=== PATIENT | female | born 1955 | race African-American/Black ===

== ENCOUNTER 2017-06-26 12:56 | Emergency (ER) | payer MEDICAID ==
[~2017-06-26] VITALS: Ht 177.8 cm; Wt 93.9 kg
[2017-06-26 12:58] VITALS: BP 178/87
[2017-06-26] MEDS ORDERED: FAMOTIDINE 20 MG TABLET PO ONE (14:00)
[2017-06-26] MEDS ORDERED: PLEASE ENTER ALLERGIES MC SCH (14:03)
[2017-06-26] MEDS ORDERED: FAMOTIDINE 20 MG TABLET ONE (14:16)
== END 2017-06-26 14:49 | disposition home or self-care (01) ==
LOC: ED 14:43
DX: L27.0 Generalized skin eruption due to drugs and medicaments taken internally (principal); T36.8X5A Adverse effect of other systemic antibiotics, initial encounter; Y92.89 Other specified places as the place of occurrence of the external cause; F17.200 Nicotine dependence, unspecified, uncomplicated
CPT/HCPCS: 99284; J7512; Q0177

== ENCOUNTER 2017-07-11 06:35 | Emergency (ER) | payer MEDICAID ==
[~2017-07-11] VITALS: Ht 180.3 cm; Wt 101.0 kg
[2017-07-11 07:13] VITALS: BP 170/78
[2017-07-11] MEDS ORDERED: vitamin E PO (07:14)
[2017-07-11] MEDS ORDERED: vitamin D PO (07:14)
[2017-07-11] MEDS ORDERED: blood pressure med PO (07:14)
[2017-07-11] MEDS ORDERED: aspirin PO (07:14)
[2017-07-11] MEDS ORDERED: hydrOXyzine 50MG TABLET ONE (07:19)
== END 2017-07-11 08:25 | disposition home or self-care (01) ==
LOC: ED 08:19
DX: B86 Scabies (principal)
CPT/HCPCS: 99283; Q0177

== ENCOUNTER 2017-07-19 09:59 | Inpatient (IN) | payer MEDICAID ==
[~2017-07-19] VITALS: Ht 177.8 cm; Wt 80.0 kg
[~2017-07-19 09:59] MED LIST: aspirin PO; blood pressure med PO; vitamin D PO; vitamin E PO
[2017-07-19] MEDS ORDERED: SODI650T PO (10:51)
[2017-07-19] MEDS ORDERED: AMLO5TAB2 PO (10:51)
[2017-07-19] MEDS ORDERED: HYDR-3343 PO (10:51)
[2017-07-19] MEDS ORDERED: CARV3.1212 PO (10:51)
[2017-07-19] MEDS ORDERED: TORS10TA4 PO (10:51)
[2017-07-19] MEDS ORDERED: ATOR40TA78 PO (10:51)
[2017-07-19] MEDS ORDERED: FERR-46 PO (10:51)
[2017-07-19] MEDS ORDERED: LISI5TAB7 PO (10:51)
[2017-07-19 11:13] LABS: BASOPHILS # (AUTO) 0.01 x10^3/uL (0-0.1); BASOPHILS % (AUTO) 0 % (0-1); EOSINOPHILS # (AUTO) 0.77 x10^3/uL (0-0.4); EOSINOPHILS % (AUTO) 14 % (1-7); LYMPHOCYTES # (AUTO) 0.58 x10^3/uL (1-3.4); LYMPHOCYTES % (AUTO) 11 % (22-44); MD NO; MEAN PLATELET VOLUME 8.5 fL (7.4-10.4); MONOCYTES # (AUTO) 0.53 x10^3/uL (0.2-0.8); MONOCYTES % (AUTO) 10 % (2-9); NEUTROPHILS # (AUTO) 3.49 x10^3/uL (1.8-6.8); NEUTROPHILS % (AUTO) 65 % (42-75); PLATELET COUNT 165 x10^3/uL (130-400)
[2017-07-19 11:21] LABS: ALANINE AMINOTRANSFERASE 55 U/L (12-78); ALBUMIN 2.7 g/dL (3.4-5.0); ANION GAP 9 mmol/L (5-15); CALCIUM 8.4 mg/dL (8.5-10.1); CHLORIDE 117 mmol/L (98-107)
[2017-07-19 11:24] LABS: ALKALINE PHOSPHATASE 426 U/L (45-117); BILIRUBIN,TOTAL 0.9 mg/dL (0.2-1.0); TOTAL PROTEIN 7.3 g/dL (6.4-8.2)
[2017-07-19 11:51] LABS: FREE T4 (FREE THYROXINE) 0.95 ng/dL (0.76-1.46); THYROID STIMULATING HORMONE 19.2 mIU/L (0.358-3.740)
[2017-07-19] MEDS ORDERED: SODIUM POLY SULFONATE UDC 15 GM/60 ML PO ONE (12:00)
[2017-07-19] MEDS ORDERED: INSULIN REGULAR 100 UNITS/ML, 3ML VIAL IVPush ONE (12:00)
[2017-07-19] MEDS ORDERED: DEXTROSE 50%, 50ML SYRINGE IVPush ONE (12:00)
[2017-07-19] MEDS ORDERED: SODIUM BICARB 8.4%, 50ML SYRINGE IVPush ONE (12:00)
[2017-07-19] MEDS ORDERED: ALBUTEROL 0.5%, 20ML NPPB ONE (12:00)
[2017-07-19 12:15] LABS: CULTURE INDICATED? YES; MICROSCOPIC INDICATED
[2017-07-19] MEDS ORDERED: SODIUM BICARB 8.4%, 50ML SYRINGE ONE (12:39)
[2017-07-19] MEDS ORDERED: DEXTROSE 50%, 50ML SYRINGE ONE (12:39)
[2017-07-19] MEDS ORDERED: INSULIN REGULAR 100 UNITS/ML, 3ML VIAL ONE (12:40)
[2017-07-19] MEDS ORDERED: SODIUM CHLORIDE 0.9% 1,000 ML IV ONE (12:41)
[2017-07-19 14:00] VITALS: BP 135/72
[2017-07-19] MEDS ORDERED: SODIUM POLYSTYRENE SULFONATE ORAL SUSP PO ONE (14:00)
[2017-07-19] MEDS ORDERED: ALLO100T30 PO (14:00)
[2017-07-19] MEDS ORDERED: POLYETHYLENE GLYCOL 17 GM PACKET PO PRN (14:00)
[2017-07-19] MEDS ORDERED: ONDANSETRON ODT 4 MG PO PRN (14:00)
[2017-07-19] MEDS ORDERED: hydrALAzine 20 MG/ML, 1ML IVPush PRN (14:00)
[2017-07-19] MEDS ORDERED: SODIUM BICARBONATE 8.4% 150 MEQ in DEXTROSE 5% 1,000 ML IV SCH (14:00)
[2017-07-19] MEDS ORDERED: LABETALOL 5MG/ML, 20ML IVPush PRN (14:00)
[2017-07-19] MEDS ORDERED: DOCUSATE 100 MG CAPSULE PO PRN (14:00)
[2017-07-19] MEDS ORDERED: BISACODYL 10 MG SUPP PR PRN (14:00)
[2017-07-19] MEDS ORDERED: FUROSEMIDE 100 MG/10 ML IV ONE (14:30)
[2017-07-19] MEDS ORDERED: SODIUM BICARBONATE 650 MG TABLET PO SCH (16:00)
[2017-07-19] MEDS: SODIUM BICARBONATE 650 MG TABLET PO SCH ×2 (16:26→21:23)
[2017-07-19 16:57] LABS: ANION GAP 11 mmol/L (5-15); CALCIUM 8.9 mg/dL (8.5-10.1); CHLORIDE 119 mmol/L (98-107); CREATININE 4.31 mg/dL (0.55-1.02)
[2017-07-19 20:08] VITALS: BP 152/83
[2017-07-19] MEDS: CARVEDILOL 3.125 MG TABLET PO SCH (21:24)
[2017-07-19] MEDS: HEPARIN 5,000 UNITS/ML, 1ML SQ SCH (21:24)
[2017-07-19] MEDS: ATORVASTATIN 40 MG TABLET PO SCH (21:24)
[2017-07-20 01:11] VITALS: BP 143/73
[2017-07-20 05:25] LABS: BASOPHILS # (AUTO) 0.01 x10^3/uL (0-0.1); BASOPHILS % (AUTO) 0 % (0-1); EOSINOPHILS # (AUTO) 0.62 x10^3/uL (0-0.4); EOSINOPHILS % (AUTO) 12 % (1-7); LYMPHOCYTES % (AUTO) 10 % (22-44); MD NO; MEAN CORPUSCULAR HEMOGLOBIN 31.5 pg (27.0-34.8); MEAN CORPUSCULAR VOLUME 95.6 fL (80-100); MEAN PLATELET VOLUME 8.4 fL (7.4-10.4); MONOCYTES # (AUTO) 0.43 x10^3/uL (0.2-0.8); MONOCYTES % (AUTO) 8 % (2-9); NEUTROPHILS # (AUTO) 3.68 x10^3/uL (1.8-6.8); NEUTROPHILS % (AUTO) 70 % (42-75); PLATELET COUNT 147 x10^3/uL (130-400); RED BLOOD COUNT 2.54 x10^6/uL (3.82-5.3); RED CELL DISTRIBUTION WIDTH 17.5 % (9.6-15.2)
[2017-07-20] MEDS: ACETAMINOPHEN 325 MG TABLET PO PRN (05:38)
[2017-07-20] MEDS: DIPHENHYDRAMINE 25 MG CAPSULE PO PRN ×2 (05:38→21:12)
[2017-07-20] MEDS: LEVOTHYROXINE 100 MCG TABLET PO SCH (05:38)
[2017-07-20 05:39] LABS: ALBUMIN 2.6 g/dL (3.4-5.0); ANION GAP 11 mmol/L (5-15); CHLORIDE 116 mmol/L (98-107)
[2017-07-20] MEDS: HEPARIN 5,000 UNITS/ML, 1ML SQ SCH ×3 (05:39→20:51)
[2017-07-20 05:47] LABS: % IRON SATURATION 11 % (20-55); ALANINE AMINOTRANSFERASE 57 U/L (12-78); ALKALINE PHOSPHATASE 389 U/L (45-117); BILIRUBIN,TOTAL 0.7 mg/dL (0.2-1.0); CREATININE 4.24 mg/dL (0.55-1.02); IRON LEVEL 29 mcg/dL (50-170); TOTAL IRON BINDING CAPACITY 271 mcg/dL (250-450)
[2017-07-20 07:10] VITALS: BP 145/79
[2017-07-20 08:20] VITALS: BP 138/71
[2017-07-20] MEDS: AMLODIPINE 5 MG TABLET PO SCH (08:32)
[2017-07-20] MEDS: CARVEDILOL 3.125 MG TABLET PO SCH ×2 (08:32→20:50)
[2017-07-20] MEDS: SODIUM BICARBONATE 650 MG TABLET PO SCH ×4 (08:32→20:50)
[2017-07-20] MEDS ORDERED: FERROUS SULFATE 325 MG TABLET PO SCH (09:00)
[2017-07-20] MEDS ORDERED: FUROSEMIDE 100 MG/10 ML IV ONE (10:30)
[2017-07-20] MEDS: SEVELAMER CARBONATE 800MG TAB PO SCH ×3 (10:40→17:45)
[2017-07-20] MEDS: IRON SUCROSE COMPLEX 100MG/5ML IV SCH (10:40)
[2017-07-20] MEDS ORDERED: FUROSEMIDE 40 MG/4 ML ONE (10:56)
[2017-07-20] MEDS: AQUAPHOR NATURAL HEALING OINT 50GM TP SCH ×2 (16:00→20:51)
[2017-07-20] MEDS: MINERA CRM, 60GM TP SCH ×2 (16:00→21:00)
[2017-07-20 17:36] VITALS: BP 121/71
[2017-07-20] MEDS: HEMORRHOIDAL OINT, 28 GM (PREP H) TP PRN ×2 (17:46→20:51)
[2017-07-20 20:04] VITALS: BP 115/63
[2017-07-20 20:49] VITALS: BP 132/70
[2017-07-20] MEDS: ATORVASTATIN 40 MG TABLET PO SCH (20:50)
[2017-07-20] MEDS: NYSTATIN TOPICAL POWDER 15GM TP SCH (21:00)
[2017-07-21 00:53] VITALS: BP 116/63
[2017-07-21] MEDS: HEPARIN 5,000 UNITS/ML, 1ML SQ SCH ×3 (04:46→20:10)
[2017-07-21] MEDS: LEVOTHYROXINE 100 MCG TABLET PO SCH (04:46)
[2017-07-21 05:49] LABS: CHLORIDE 116 mmol/L (98-107)
[2017-07-21 05:58] LABS: MEAN CORPUSCULAR HEMOGLOBIN 31.9 pg (27.0-34.8); MEAN CORPUSCULAR HGB CONC 33.4 g/dL (32.4-35.8); MEAN CORPUSCULAR VOLUME 95.6 fL (80-100); MEAN PLATELET VOLUME 8.8 fL (7.4-10.4); PLATELET COUNT 119 x10^3/uL (130-400); RED CELL DISTRIBUTION WIDTH 17.2 % (9.6-15.2)
[2017-07-21 06:20] LABS: RED BLOOD COUNT 2.62 x10^6/uL (3.82-5.3)
[2017-07-21 06:21] LABS: CREATININE 4.19 mg/dL (0.55-1.02); MEAN CORPUSCULAR HGB CONC 32.6 g/dL (32.4-35.8); MEAN CORPUSCULAR VOLUME 95.1 fL (80-100); RED CELL DISTRIBUTION WIDTH 17.2 % (9.6-15.2)
[2017-07-21 06:23] LABS: ALANINE AMINOTRANSFERASE 55 U/L (12-78); ALBUMIN 2.5 g/dL (3.4-5.0); ALKALINE PHOSPHATASE 389 U/L (45-117); ANION GAP 11 mmol/L (5-15); BILIRUBIN,TOTAL 0.6 mg/dL (0.2-1.0); CALCIUM 8.5 mg/dL (8.5-10.1); CREATININE 4.16 mg/dL (0.55-1.02)
[2017-07-21 06:35] LABS: BASOPHILS # (AUTO) 0.01 x10^3/uL (0-0.1); BASOPHILS % (AUTO) 0 % (0-1); EOSINOPHILS # (AUTO) 0.41 x10^3/uL (0-0.4); EOSINOPHILS % (AUTO) 11 % (1-7); LYMPHOCYTES # (AUTO) 0.23 x10^3/uL (1-3.4); LYMPHOCYTES % (AUTO) 6 % (22-44); MD SCAN; MONOCYTES % (AUTO) 8 % (2-9); NEUTROPHILS # (AUTO) 2.71 x10^3/uL (1.8-6.8); NEUTROPHILS % (AUTO) 74 % (42-75)
[2017-07-21 09:34] VITALS: BP 134/76
[2017-07-21] MEDS: SODIUM BICARBONATE 650 MG TABLET PO SCH ×3 (09:56→21:27)
[2017-07-21] MEDS: CARVEDILOL 3.125 MG TABLET PO SCH ×2 (09:56→21:00)
[2017-07-21] MEDS: SEVELAMER CARBONATE 800MG TAB PO SCH ×3 (09:56→17:41)
[2017-07-21] MEDS: AMLODIPINE 5 MG TABLET PO SCH (09:56)
[2017-07-21] MEDS: HEMORRHOIDAL OINT, 28 GM (PREP H) TP PRN (09:57)
[2017-07-21] MEDS: AQUAPHOR NATURAL HEALING OINT 50GM TP SCH ×3 (09:57→21:28)
[2017-07-21] MEDS: NYSTATIN TOPICAL POWDER 15GM TP SCH ×2 (09:57→21:27)
[2017-07-21] MEDS: MINERA CRM, 60GM TP SCH ×3 (09:58→20:10)
[2017-07-21] MEDS ORDERED: LIDOCAINE-MPF 1%, 2ML ONE (10:22)
[2017-07-21] MEDS: OXYcodone IR 5MG TABLET PO PRN ×2 (13:28→20:56)
[2017-07-21 15:45] VITALS: BP 120/63
[2017-07-21 21:07] VITALS: BP 115/66
[2017-07-21] MEDS: ATORVASTATIN 40 MG TABLET PO SCH (21:27)
[2017-07-22 02:13] VITALS: BP 119/68
[2017-07-22] MEDS: HEPARIN 5,000 UNITS/ML, 1ML SQ SCH ×3 (04:05→21:28)
[2017-07-22] MEDS: LEVOTHYROXINE 100 MCG TABLET PO SCH (05:33)
[2017-07-22 05:49] LABS: MEAN CORPUSCULAR HEMOGLOBIN 32.8 pg (27.0-34.8); MEAN CORPUSCULAR HGB CONC 34.4 g/dL (32.4-35.8); MEAN CORPUSCULAR VOLUME 95.4 fL (80-100); MEAN PLATELET VOLUME 8.4 fL (7.4-10.4); PLATELET COUNT 124 x10^3/uL (130-400); RED BLOOD COUNT 2.41 x10^6/uL (3.82-5.3); RED CELL DISTRIBUTION WIDTH 17.1 % (9.6-15.2)
[2017-07-22 06:01] LABS: ALBUMIN 2.2 g/dL (3.4-5.0); ANION GAP 7 mmol/L (5-15); CALCIUM 7.9 mg/dL (8.5-10.1); CHLORIDE 112 mmol/L (98-107)
[2017-07-22 06:05] LABS: ALANINE AMINOTRANSFERASE 51 U/L (12-78); ALKALINE PHOSPHATASE 341 U/L (45-117); BILIRUBIN,TOTAL 0.5 mg/dL (0.2-1.0); CREATININE 3.33 mg/dL (0.55-1.02); TOTAL PROTEIN 6.7 g/dL (6.4-8.2)
[2017-07-22 06:21] LABS: BASOPHILS # (AUTO) 0.03 x10^3/uL (0-0.1); BASOPHILS % (AUTO) 1 % (0-1); EOSINOPHILS # (AUTO) 0.32 x10^3/uL (0-0.4); EOSINOPHILS % (AUTO) 8 % (1-7); LYMPHOCYTES # (AUTO) 0.28 x10^3/uL (1-3.4); LYMPHOCYTES % (AUTO) 7 % (22-44); MD SCAN; MONOCYTES # (AUTO) 0.43 x10^3/uL (0.2-0.8); MONOCYTES % (AUTO) 11 % (2-9); NEUTROPHILS # (AUTO) 2.92 x10^3/uL (1.8-6.8); NEUTROPHILS % (AUTO) 74 % (42-75)
[2017-07-22] MEDS: MINERA CRM, 60GM TP SCH ×3 (09:00→22:30)
[2017-07-22] MEDS: SEVELAMER CARBONATE 800MG TAB PO SCH ×3 (09:22→16:38)
[2017-07-22] MEDS: IRON SUCROSE COMPLEX 100MG/5ML IV SCH (09:23)
[2017-07-22] MEDS: SODIUM BICARBONATE 650 MG TABLET PO SCH ×3 (09:23→21:28)
[2017-07-22] MEDS: AMLODIPINE 5 MG TABLET PO SCH (09:23)
[2017-07-22] MEDS: CARVEDILOL 3.125 MG TABLET PO SCH ×2 (09:23→21:28)
[2017-07-22] MEDS: NYSTATIN TOPICAL POWDER 15GM TP SCH ×2 (09:24→21:34)
[2017-07-22] MEDS: AQUAPHOR NATURAL HEALING OINT 50GM TP SCH ×3 (09:24→21:34)
[2017-07-22 10:36] VITALS: BP 108/62
[2017-07-22 16:15] VITALS: BP 141/72
[2017-07-22 19:30] VITALS: BP 133/72
[2017-07-22] MEDS: ATORVASTATIN 40 MG TABLET PO SCH (21:28)
[2017-07-23 01:10] VITALS: BP 107/61
[2017-07-23] MEDS: LEVOTHYROXINE 100 MCG TABLET PO SCH (05:05)
[2017-07-23] MEDS: HEPARIN 5,000 UNITS/ML, 1ML SQ SCH ×3 (05:05→20:46)
[2017-07-23 05:48] LABS: MEAN CORPUSCULAR HEMOGLOBIN 30.3 pg (27.0-34.8); MEAN CORPUSCULAR HGB CONC 31.7 g/dL (32.4-35.8); MEAN CORPUSCULAR VOLUME 95.5 fL (80-100); MEAN PLATELET VOLUME 8.9 fL (7.4-10.4); PLATELET COUNT 114 x10^3/uL (130-400); RED BLOOD COUNT 2.38 x10^6/uL (3.82-5.3); RED CELL DISTRIBUTION WIDTH 16.6 % (9.6-15.2)
[2017-07-23 05:49] LABS: CHLORIDE 103 mmol/L (98-107)
[2017-07-23 05:53] LABS: ANION GAP 7 mmol/L (5-15); CALCIUM 7.8 mg/dL (8.5-10.1); CREATININE 2.68 mg/dL (0.55-1.02)
[2017-07-23 06:27] LABS: BASOPHILS % (AUTO) 0 % (0-1); EOSINOPHILS # (AUTO) 0.03 x10^3/uL (0-0.4); EOSINOPHILS % (AUTO) 0 % (1-7); LYMPHOCYTES # (AUTO) 0.34 x10^3/uL (1-3.4); LYMPHOCYTES % (AUTO) 3 % (22-44); MD SCAN; MONOCYTES % (AUTO) 4 % (2-9); NEUTROPHILS % (AUTO) 93 % (42-75)
[2017-07-23 06:45] VITALS: BP 117/71
[2017-07-23] MEDS: SEVELAMER CARBONATE 800MG TAB PO SCH ×3 (08:00→16:58)
[2017-07-23] MEDS: CARVEDILOL 3.125 MG TABLET PO SCH ×2 (08:18→20:45)
[2017-07-23] MEDS: AQUAPHOR NATURAL HEALING OINT 50GM TP SCH ×3 (09:00→20:46)
[2017-07-23] MEDS: MINERA CRM, 60GM TP SCH ×3 (09:00→20:46)
[2017-07-23] MEDS: NYSTATIN TOPICAL POWDER 15GM TP SCH ×2 (09:00→20:46)
[2017-07-23] MEDS: AMLODIPINE 5 MG TABLET PO SCH (11:50)
[2017-07-23 14:19] VITALS: BP 113/63
[2017-07-23] MEDS: SODIUM BICARBONATE 650 MG TABLET PO SCH ×2 (16:58→20:45)
[2017-07-23 19:55] VITALS: BP 103/61
[2017-07-23] MEDS: ATORVASTATIN 40 MG TABLET PO SCH (20:45)
[2017-07-24 00:28] VITALS: BP 98/52
[2017-07-24] MEDS: HEPARIN 5,000 UNITS/ML, 1ML SQ SCH ×3 (04:51→20:03)
[2017-07-24] MEDS: LEVOTHYROXINE 100 MCG TABLET PO SCH (04:51)
[2017-07-24 05:30] LABS: CHLORIDE 93 mmol/L (98-107)
[2017-07-24 05:31] LABS: MEAN CORPUSCULAR HEMOGLOBIN 32.1 pg (27.0-34.8); MEAN CORPUSCULAR HGB CONC 33.3 g/dL (32.4-35.8); MEAN CORPUSCULAR VOLUME 96.3 fL (80-100); RED CELL DISTRIBUTION WIDTH 16.2 % (9.6-15.2)
[2017-07-24 05:40] LABS: ANION GAP 9 mmol/L (5-15); CALCIUM 7.8 mg/dL (8.5-10.1); CREATININE 2.31 mg/dL (0.55-1.02)
[2017-07-24 06:16] LABS: MD YES; PLATELET COUNT 83 x10^3/uL (130-400)
[2017-07-24 06:27] LABS: <PLATELET ESTIMATE> DECREASED; <PLT MORPHOLOGY> NORMAL PLT MORPH; <RBC MORPHOLOGY> NORMAL; BAND#(MANUAL) 1.14 x10^3/uL; BANDS%(MANUAL) 12 % (0-7); EOS#(MANUAL) 0.19 x10^3/uL (0.0-0.4); EOS% (MANUAL) 2 % (1-7); LYMPH#(MANUAL) 0.57 x10^3/uL (1-3.4); LYMPHS% (MANUAL) 6 % (22-44); MONOS#(MANUAL) 0.38 x10^3/uL (0.3-2.7); MONOS% (MANUAL) 4 % (2-9); SEG#(MANUAL) 7.22 x10^3/uL (1.8-6.8); SEGS% (MANUAL) 76 % (42-75)
[2017-07-24 08:04] VITALS: BP 105/67
[2017-07-24 08:36] LABS: MICROSCOPIC INDICATED
[2017-07-24 08:37] LABS: CULTURE INDICATED? YES
[2017-07-24] MEDS: IRON SUCROSE COMPLEX 100MG/5ML IV SCH (08:44)
[2017-07-24] MEDS: SODIUM BICARBONATE 650 MG TABLET PO SCH (08:44)
[2017-07-24] MEDS: SEVELAMER CARBONATE 800MG TAB PO SCH ×3 (08:46→17:00)
[2017-07-24] MEDS: AQUAPHOR NATURAL HEALING OINT 50GM TP SCH ×3 (08:50→20:04)
[2017-07-24] MEDS: NYSTATIN TOPICAL POWDER 15GM TP SCH ×2 (08:50→20:04)
[2017-07-24] MEDS: MINERA CRM, 60GM TP SCH ×3 (08:50→20:04)
[2017-07-24] MEDS: CARVEDILOL 3.125 MG TABLET PO SCH ×2 (10:33→23:43)
[2017-07-24] MEDS: DOXYCYCLINE 100MG TABLET PO SCH ×2 (11:28→22:57)
[2017-07-24] MEDS: OXYcodone IR 5MG TABLET PO PRN (14:20)
[2017-07-24 15:54] VITALS: BP 109/66
[2017-07-24] MEDS ORDERED: VANCOMYCIN PER PHARMACY MC PRN (17:00)
[2017-07-24] MEDS ORDERED: PHARMACY MAY ADJ FOR RENAL FX MC PRN (17:00)
[2017-07-24] MEDS ORDERED: PHARMACOKINETIC CONSULTATION MC ONE (17:30)
[2017-07-24] MEDS ORDERED: VANCOMYCIN 1,600 MG in SODIUM CHLORIDE 0.9% 250 ML IV ONE (17:30)
[2017-07-24] MEDS ORDERED: PHARMACOKINETIC MONITORING MC PRN (17:30)
[2017-07-24 19:51] VITALS: BP 126/65
[2017-07-24 20:45] VITALS: BP 106/63
[2017-07-24 21:55] LABS: O2 FLOW ROOM AIR L/min
[2017-07-24 22:07] LABS: ANION GAP 8 mmol/L (5-15); CALCIUM 8.6 mg/dL (8.5-10.1); CHLORIDE 96 mmol/L (98-107)
[2017-07-24 22:17] LABS: MEAN CORPUSCULAR HEMOGLOBIN 31.1 pg (27.0-34.8); MEAN CORPUSCULAR HGB CONC 32.3 g/dL (32.4-35.8); MEAN CORPUSCULAR VOLUME 96.4 fL (80-100); MEAN PLATELET VOLUME 9.6 fL (7.4-10.4); PLATELET COUNT 63 x10^3/uL (130-400); RED BLOOD COUNT 2.37 x10^6/uL (3.82-5.3); RED CELL DISTRIBUTION WIDTH 16.1 % (9.6-15.2)
[2017-07-24 22:22] LABS: MD YES
[2017-07-24 22:23] LABS: BAND#(MANUAL) 2.27 x10^3/uL; BANDS%(MANUAL) 18 % (0-7); LYMPHS% (MANUAL) 4 % (22-44); MONOS#(MANUAL) 0.38 x10^3/uL (0.3-2.7); MONOS% (MANUAL) 3 % (2-9); SEG#(MANUAL) 9.45 x10^3/uL (1.8-6.8); SEGS% (MANUAL) 75 % (42-75)
[2017-07-24 22:24] LABS: <PLATELET ESTIMATE> DECREASED; <PLT MORPHOLOGY> NORMAL PLT MORPH; <RBC MORPHOLOGY> NORMAL
[2017-07-24] MEDS: ATORVASTATIN 40 MG TABLET PO SCH (22:57)
[2017-07-25 02:00] VITALS: BP 109/66
[2017-07-25] MEDS: HEPARIN 5,000 UNITS/ML, 1ML SQ SCH (05:00)
[2017-07-25 06:13] LABS: MEAN CORPUSCULAR HEMOGLOBIN 32.9 pg (27.0-34.8); MEAN CORPUSCULAR HGB CONC 34.3 g/dL (32.4-35.8); MEAN CORPUSCULAR VOLUME 95.9 fL (80-100); RED BLOOD COUNT 2.37 x10^6/uL (3.82-5.3)
[2017-07-25 06:16] LABS: ANION GAP 8 mmol/L (5-15); CALCIUM 8.1 mg/dL (8.5-10.1); CHLORIDE 97 mmol/L (98-107)
[2017-07-25 06:20] LABS: ALANINE AMINOTRANSFERASE 37 U/L (12-78); ALKALINE PHOSPHATASE 270 U/L (45-117); BILIRUBIN,TOTAL 0.9 mg/dL (0.2-1.0); CREATININE 2.09 mg/dL (0.55-1.02); TOTAL PROTEIN 6.4 g/dL (6.4-8.2)
[2017-07-25 06:33] LABS: MD YES; MEAN PLATELET VOLUME 9.9 fL (7.4-10.4); PLATELET COUNT 54 x10^3/uL (130-400)
[2017-07-25] MEDS: LEVOTHYROXINE 100 MCG TABLET PO SCH (06:34)
[2017-07-25 06:36] LABS: BAND#(MANUAL) 1.87 x10^3/uL; BANDS%(MANUAL) 16 % (0-7); LYMPH#(MANUAL) 0.94 x10^3/uL (1-3.4); LYMPHS% (MANUAL) 8 % (22-44); MONOS#(MANUAL) 0.47 x10^3/uL (0.3-2.7); MONOS% (MANUAL) 4 % (2-9); SEG#(MANUAL) 8.42 x10^3/uL (1.8-6.8); SEGS% (MANUAL) 72 % (42-75)
[2017-07-25 06:38] LABS: <PLATELET ESTIMATE> DECREASED; <PLT MORPHOLOGY> NORMAL PLT MORPH; <RBC MORPHOLOGY> NORMAL
[2017-07-25 07:11] VITALS: BP 103/64
[2017-07-25] MEDS: SEVELAMER CARBONATE 800MG TAB PO SCH ×3 (08:09→17:31)
[2017-07-25] MEDS: CARVEDILOL 3.125 MG TABLET PO SCH ×2 (08:10→21:52)
[2017-07-25] MEDS: MINERA CRM, 60GM TP SCH ×3 (08:11→21:00)
[2017-07-25] MEDS: AQUAPHOR NATURAL HEALING OINT 50GM TP SCH ×3 (08:11→21:00)
[2017-07-25] MEDS: NYSTATIN TOPICAL POWDER 15GM TP SCH ×2 (08:11→21:00)
[2017-07-25] MEDS: OXYcodone IR 5MG TABLET PO PRN (11:41)
[2017-07-25 12:16] VITALS: BP 101/60
[2017-07-25 19:53] VITALS: BP 110/70
[2017-07-25] MEDS ORDERED: AMLODIPINE 5 MG TABLET PO SCH (21:00)
[2017-07-25] MEDS: ATORVASTATIN 40 MG TABLET PO SCH (21:53)
[2017-07-26 01:00] VITALS: BP 105/61
[2017-07-26 05:15] LABS: MEAN CORPUSCULAR HEMOGLOBIN 31.3 pg (27.0-34.8); MEAN CORPUSCULAR HGB CONC 32.5 g/dL (32.4-35.8); MEAN CORPUSCULAR VOLUME 96.3 fL (80-100); MEAN PLATELET VOLUME 10.4 fL (7.4-10.4); PLATELET COUNT 56 x10^3/uL (130-400); RED BLOOD COUNT 2.28 x10^6/uL (3.82-5.3); RED CELL DISTRIBUTION WIDTH 16.1 % (9.6-15.2)
[2017-07-26] MEDS: LEVOTHYROXINE 100 MCG TABLET PO SCH (05:35)
[2017-07-26 05:39] LABS: ALBUMIN 1.8 g/dL (3.4-5.0); CHLORIDE 97 mmol/L (98-107)
[2017-07-26 05:43] LABS: MD YES
[2017-07-26 05:45] LABS: <PLATELET ESTIMATE> DECREASED; <PLT MORPHOLOGY> NORMAL PLT MORPH; <RBC MORPHOLOGY> NORMAL; BAND#(MANUAL) 1.52 x10^3/uL; BANDS%(MANUAL) 13 % (0-7); BASOS#(MANUAL) 0.12 x10^3/uL (0-0.1); BASOS% (MANUAL) 1 % (0-1); EOS#(MANUAL) 0.23 x10^3/uL (0.0-0.4); EOS% (MANUAL) 2 % (1-7); LYMPH#(MANUAL) 0.23 x10^3/uL (1-3.4); LYMPHS% (MANUAL) 2 % (22-44); SEG#(MANUAL) 9.59 x10^3/uL (1.8-6.8); SEGS% (MANUAL) 82 % (42-75)
[2017-07-26 05:48] LABS: ALANINE AMINOTRANSFERASE 31 U/L (12-78); ALKALINE PHOSPHATASE 248 U/L (45-117); ANION GAP 7 mmol/L (5-15); BILIRUBIN,TOTAL 0.6 mg/dL (0.2-1.0); CALCIUM 8.5 mg/dL (8.5-10.1); CREATININE 2.83 mg/dL (0.55-1.02); TOTAL PROTEIN 6.3 g/dL (6.4-8.2); VANCOMYCIN,RANDOM 15.2 mcg/mL
[2017-07-26 07:57] VITALS: BP 105/65
[2017-07-26] MEDS: NYSTATIN TOPICAL POWDER 15GM TP SCH ×2 (08:08→23:00)
[2017-07-26] MEDS: SEVELAMER CARBONATE 800MG TAB PO SCH (08:08)
[2017-07-26] MEDS: IRON SUCROSE COMPLEX 100MG/5ML IV SCH (08:09)
[2017-07-26] MEDS: AQUAPHOR NATURAL HEALING OINT 50GM TP SCH ×3 (08:15→23:00)
[2017-07-26] MEDS: MINERA CRM, 60GM TP SCH ×3 (08:15→23:00)
[2017-07-26] MEDS: CARVEDILOL 3.125 MG TABLET PO SCH ×2 (08:26→22:42)
[2017-07-26] MEDS: OXYcodone IR 5MG TABLET PO PRN ×2 (11:51→22:42)
[2017-07-26 12:59] VITALS: BP 110/65
[2017-07-26] MEDS ORDERED: VANCOMYCIN 1,500 MG in SODIUM CHLORIDE 0.9% 250 ML IV ONE (15:00)
[2017-07-26] MEDS: ACETAMINOPHEN 325 MG TABLET PO PRN (16:26)
[2017-07-26] MEDS ORDERED: VANCOMYCIN 1,700 MG in SODIUM CHLORIDE 0.9% 250 ML IV ONE (18:00)
[2017-07-26 18:35] VITALS: BP 102/62
[2017-07-26 22:00] VITALS: BP 114/67
[2017-07-26] MEDS: ATORVASTATIN 40 MG TABLET PO SCH (22:42)
[2017-07-27 01:32] VITALS: BP 108/68
[2017-07-27] MEDS: OXYcodone IR 5MG TABLET PO PRN ×3 (04:18→22:45)
[2017-07-27] MEDS: LEVOTHYROXINE 100 MCG TABLET PO SCH (05:52)
[2017-07-27 06:31] LABS: ALANINE AMINOTRANSFERASE 28 U/L (12-78); ALBUMIN 1.7 g/dL (3.4-5.0); ANION GAP 4 mmol/L (5-15); CALCIUM 8.3 mg/dL (8.5-10.1); CHLORIDE 98 mmol/L (98-107); CREATININE 1.88 mg/dL (0.55-1.02)
[2017-07-27 06:34] LABS: ALKALINE PHOSPHATASE 280 U/L (45-117); BILIRUBIN,TOTAL 0.7 mg/dL (0.2-1.0); TOTAL PROTEIN 6.5 g/dL (6.4-8.2)
[2017-07-27 06:44] LABS: MEAN CORPUSCULAR HEMOGLOBIN 31.7 pg (27.0-34.8); MEAN CORPUSCULAR HGB CONC 33.2 g/dL (32.4-35.8); MEAN CORPUSCULAR VOLUME 95.7 fL (80-100); MEAN PLATELET VOLUME 10.2 fL (7.4-10.4); PLATELET COUNT 66 x10^3/uL (130-400); RED BLOOD COUNT 2.28 x10^6/uL (3.82-5.3); RED CELL DISTRIBUTION WIDTH 15.8 % (9.6-15.2)
[2017-07-27 06:57] LABS: BASOPHILS # (AUTO) 0.01 x10^3/uL (0-0.1); BASOPHILS % (AUTO) 0 % (0-1); EOSINOPHILS # (AUTO) 0.05 x10^3/uL (0-0.4); EOSINOPHILS % (AUTO) 0 % (1-7); LYMPHOCYTES # (AUTO) 0.65 x10^3/uL (1-3.4); LYMPHOCYTES % (AUTO) 5 % (22-44); MD SCAN; MONOCYTES # (AUTO) 1.47 x10^3/uL (0.2-0.8); MONOCYTES % (AUTO) 11 % (2-9); NEUTROPHILS % (AUTO) 84 % (42-75)
[2017-07-27 07:21] VITALS: BP 96/58
[2017-07-27 08:48] VITALS: BP 113/73
[2017-07-27] MEDS ORDERED: VANCOMYCIN 50 MG/ML ORAL SUSP PO SCH (09:00)
[2017-07-27] MEDS: TRIAMCINOLONE CRM 0.1%, 15GM TP SCH ×2 (11:23→20:44)
[2017-07-27] MEDS: MINERA CRM, 60GM TP SCH ×3 (11:58→20:44)
[2017-07-27] MEDS: AQUAPHOR NATURAL HEALING OINT 50GM TP SCH ×3 (11:58→20:44)
[2017-07-27] MEDS: NYSTATIN TOPICAL POWDER 15GM TP SCH ×2 (11:58→20:43)
[2017-07-27 13:03] VITALS: BP 106/62
[2017-07-27] MEDS ORDERED: LIDOCAINE-MPF 1%, 2ML ONE (14:56)
[2017-07-27 19:29] VITALS: BP 107/69
[2017-07-27] MEDS: ATORVASTATIN 40 MG TABLET PO SCH (20:39)
[2017-07-28 00:48] VITALS: BP 103/65
[2017-07-28] MEDS: OXYcodone IR 5MG TABLET PO PRN ×2 (05:51→11:46)
[2017-07-28] MEDS: LEVOTHYROXINE 100 MCG TABLET PO SCH (05:51)
[2017-07-28 06:28] LABS: MEAN CORPUSCULAR HEMOGLOBIN 31.5 pg (27.0-34.8); MEAN CORPUSCULAR HGB CONC 32.3 g/dL (32.4-35.8); MEAN CORPUSCULAR VOLUME 97.6 fL (80-100); MEAN PLATELET VOLUME 10.2 fL (7.4-10.4); PLATELET COUNT 76 x10^3/uL (130-400); RED BLOOD COUNT 2.33 x10^6/uL (3.82-5.3); RED CELL DISTRIBUTION WIDTH 15.9 % (9.6-15.2)
[2017-07-28 06:31] LABS: ALBUMIN 1.7 g/dL (3.4-5.0); CALCIUM 8.4 mg/dL (8.5-10.1); CHLORIDE 99 mmol/L (98-107)
[2017-07-28 06:37] LABS: ALANINE AMINOTRANSFERASE 28 U/L (12-78); ALKALINE PHOSPHATASE 288 U/L (45-117); ANION GAP 9 mmol/L (5-15); BILIRUBIN,TOTAL 0.8 mg/dL (0.2-1.0); CREATININE 2.69 mg/dL (0.55-1.02); TOTAL PROTEIN 6.7 g/dL (6.4-8.2); VANCOMYCIN,RANDOM 24.9 mcg/mL
[2017-07-28 06:45] LABS: BASOPHILS # (AUTO) 0.02 x10^3/uL (0-0.1); BASOPHILS % (AUTO) 0 % (0-1); EOSINOPHILS # (AUTO) 0.07 x10^3/uL (0-0.4); EOSINOPHILS % (AUTO) 1 % (1-7); LYMPHOCYTES # (AUTO) 1.04 x10^3/uL (1-3.4); LYMPHOCYTES % (AUTO) 8 % (22-44); MD SCAN; MONOCYTES % (AUTO) 11 % (2-9); NEUTROPHILS # (AUTO) 10.25 x10^3/uL (1.8-6.8); NEUTROPHILS % (AUTO) 80 % (42-75)
[2017-07-28 07:35] VITALS: BP 128/75
[2017-07-28] MEDS: AQUAPHOR NATURAL HEALING OINT 50GM TP SCH ×3 (09:00→21:41)
[2017-07-28] MEDS: NYSTATIN TOPICAL POWDER 15GM TP SCH ×2 (09:01→21:43)
[2017-07-28] MEDS: TRIAMCINOLONE CRM 0.1%, 15GM TP SCH ×2 (09:02→21:45)
[2017-07-28] MEDS: MINERA CRM, 60GM TP SCH ×3 (09:02→21:41)
[2017-07-28 10:11] LABS: SYN CELLS COUNTED 395
[2017-07-28] MEDS: DAPTOMYCIN 500 MG in SODIUM CHLORIDE 0.9% 100 ML IVPB SCH (10:50)
[2017-07-28] MEDS: IRON SUCROSE COMPLEX 100MG/5ML IV SCH (10:50)
[2017-07-28 12:30] VITALS: BP 113/62
[2017-07-28 12:42] LABS: O2 FLOW ROOM AIR L/min
[2017-07-28] MEDS ORDERED: OXYcodone IR 5MG TABLET PO PRN (13:00)
[2017-07-28] MEDS ORDERED: FENTANYL PF 100 MCG/2ML ONE (18:32)
[2017-07-28] MEDS ORDERED: FENTANYL PF 100 MCG/2ML IVPush PRN (19:00)
[2017-07-28] MEDS ORDERED: FENTANYL PF 250 MCG/5ML ONE (19:32)
[2017-07-28] MEDS ORDERED: PROPOFOL 10 MG/ML, 20ML ONE ×2 (19:33→20:09)
[2017-07-28] MEDS ORDERED: ROCURONIUM 10MG/ML,5ML ONE ×3 (19:33→21:18)
[2017-07-28] MEDS ORDERED: BACITRACIN 50,000 UNIT ONE (20:02)
[2017-07-28] MEDS ORDERED: PHENYLEPHRINE 10 MG/ML ONE (20:09)
[2017-07-28] MEDS: ATORVASTATIN 40 MG TABLET PO SCH (22:05)
[2017-07-28] MEDS ORDERED: PROPOFOL 100 ML IV ONE (22:08)
[2017-07-28] MEDS: FENTANYL PF 100 MCG/2ML IVPush PRN (22:14)
[2017-07-28] MEDS: CLINDAMYCIN 300 MG CAPSULE PO SCH (23:32)
[2017-07-28] MEDS: PROPOFOL 100 ML IV PRN (23:35)
[2017-07-29] VITALS (13 sets, daily range): BP systolic 92–141; BP diastolic 46–77
[2017-07-29] MEDS: LIDOCAINE-MPF 1%, 2ML ENDO PRN (01:49)
[2017-07-29] MEDS: ALBUTEROL/IPRATROPIUM 2.5MG/0.5MG, 3 ML INLINE SCH ×7 (01:49→22:00)
[2017-07-29] MEDS: FENTANYL PF 100 MCG/2ML IVPush PRN (02:44)
[2017-07-29 04:31] LABS: MEAN CORPUSCULAR HEMOGLOBIN 31.5 pg (27.0-34.8); MEAN CORPUSCULAR HGB CONC 32.4 g/dL (32.4-35.8); MEAN CORPUSCULAR VOLUME 97.3 fL (80-100); MEAN PLATELET VOLUME 9.6 fL (7.4-10.4); PLATELET COUNT 100 x10^3/uL (130-400); RED BLOOD COUNT 2.11 x10^6/uL (3.82-5.3); RED CELL DISTRIBUTION WIDTH 15.2 % (9.6-15.2)
[2017-07-29 04:35] LABS: CALCIUM 7.8 mg/dL (8.5-10.1); CHLORIDE 102 mmol/L (98-107)
[2017-07-29 04:42] LABS: ALANINE AMINOTRANSFERASE 25 U/L (12-78); ALBUMIN 1.7 g/dL (3.4-5.0); ALKALINE PHOSPHATASE 248 U/L (45-117); ANION GAP 10 mmol/L (5-15); BILIRUBIN,TOTAL 0.7 mg/dL (0.2-1.0); CREATININE 3.46 mg/dL (0.55-1.02); TOTAL PROTEIN 6.2 g/dL (6.4-8.2)
[2017-07-29 05:04] LABS: BASOPHILS # (AUTO) 0.01 x10^3/uL (0-0.1); BASOPHILS % (AUTO) 0 % (0-1); EOSINOPHILS # (AUTO) 0.03 x10^3/uL (0-0.4); EOSINOPHILS % (AUTO) 0 % (1-7); LYMPHOCYTES # (AUTO) 0.85 x10^3/uL (1-3.4); LYMPHOCYTES % (AUTO) 6 % (22-44); MD SCAN; MONOCYTES # (AUTO) 1.23 x10^3/uL (0.2-0.8); MONOCYTES % (AUTO) 9 % (2-9); NEUTROPHILS # (AUTO) 12.04 x10^3/uL (1.8-6.8); NEUTROPHILS % (AUTO) 85 % (42-75)
[2017-07-29] MEDS: PROPOFOL 100 ML IV PRN (05:13)
[2017-07-29] MEDS: CLINDAMYCIN 300 MG CAPSULE PO SCH ×4 (05:14→23:34)
[2017-07-29] MEDS: LEVOTHYROXINE 100 MCG TABLET PO SCH (05:20)
[2017-07-29] MEDS: AQUAPHOR NATURAL HEALING OINT 50GM TP SCH ×3 (09:49→20:21)
[2017-07-29] MEDS: MINERA CRM, 60GM TP SCH ×3 (09:49→20:21)
[2017-07-29] MEDS: NYSTATIN TOPICAL POWDER 15GM TP SCH ×2 (09:49→20:21)
[2017-07-29] MEDS: TRIAMCINOLONE CRM 0.1%, 15GM TP SCH ×2 (09:50→20:21)
[2017-07-29] MEDS: ATORVASTATIN 40 MG TABLET PO SCH (21:23)
[2017-07-30] MEDS: FENTANYL PF 100 MCG/2ML IVPush PRN ×2 (01:28→12:56)
[2017-07-30] MEDS: ALBUTEROL/IPRATROPIUM 2.5MG/0.5MG, 3 ML INLINE SCH ×6 (02:00→23:00)
[2017-07-30] MEDS: LIDOCAINE-MPF 1%, 2ML ENDO PRN (03:07)
[2017-07-30 04:00] VITALS: BP 110/57
[2017-07-30 04:44] LABS: MEAN CORPUSCULAR HEMOGLOBIN 31.4 pg (27.0-34.8); MEAN CORPUSCULAR HGB CONC 33.8 g/dL (32.4-35.8); MEAN CORPUSCULAR VOLUME 92.9 fL (80-100); MEAN PLATELET VOLUME 8.7 fL (7.4-10.4); PLATELET COUNT 125 x10^3/uL (130-400); RED BLOOD COUNT 2.64 x10^6/uL (3.82-5.3); RED CELL DISTRIBUTION WIDTH 17.7 % (9.6-15.2)
[2017-07-30 05:11] LABS: BASOPHILS # (AUTO) 0.01 x10^3/uL (0-0.1); BASOPHILS % (AUTO) 0 % (0-1); EOSINOPHILS # (AUTO) 0.05 x10^3/uL (0-0.4); EOSINOPHILS % (AUTO) 0 % (1-7); LYMPHOCYTES # (AUTO) 1.06 x10^3/uL (1-3.4); LYMPHOCYTES % (AUTO) 7 % (22-44); MD SCAN; MONOCYTES # (AUTO) 2.03 x10^3/uL (0.2-0.8); MONOCYTES % (AUTO) 14 % (2-9); NEUTROPHILS # (AUTO) 11.64 x10^3/uL (1.8-6.8); NEUTROPHILS % (AUTO) 79 % (42-75)
[2017-07-30] MEDS: CLINDAMYCIN 300 MG CAPSULE PO SCH ×3 (05:44→22:24)
[2017-07-30] MEDS: LEVOTHYROXINE 100 MCG TABLET PO SCH (05:45)
[2017-07-30] MEDS: CALCITRIOL 0.25 MCG CAPSULE PO SCH (09:00)
[2017-07-30 09:24] LABS: ALANINE AMINOTRANSFERASE 28 U/L (12-78); ALBUMIN 1.8 g/dL (3.4-5.0); ANION GAP 9 mmol/L (5-15); CALCIUM 7.7 mg/dL (8.5-10.1); CHLORIDE 105 mmol/L (98-107)
[2017-07-30 09:27] LABS: ALKALINE PHOSPHATASE 255 U/L (45-117); BILIRUBIN,TOTAL 0.9 mg/dL (0.2-1.0); CREATININE 4.36 mg/dL (0.55-1.02); TOTAL PROTEIN 6.5 g/dL (6.4-8.2)
[2017-07-30] MEDS: NYSTATIN TOPICAL POWDER 15GM TP SCH ×2 (11:26→22:23)
[2017-07-30] MEDS: MINERA CRM, 60GM TP SCH ×3 (11:26→22:24)
[2017-07-30] MEDS: TRIAMCINOLONE CRM 0.1%, 15GM TP SCH ×2 (11:26→22:24)
[2017-07-30] MEDS: AQUAPHOR NATURAL HEALING OINT 50GM TP SCH ×3 (11:26→22:23)
[2017-07-30] MEDS: DAPTOMYCIN 500 MG in SODIUM CHLORIDE 0.9% 100 ML IVPB SCH (12:57)
[2017-07-30] MEDS: ATORVASTATIN 40 MG TABLET PO SCH (22:24)
[2017-07-31] MEDS: CLINDAMYCIN 300 MG CAPSULE PO SCH ×4 (03:39→20:15)
[2017-07-31 04:58] LABS: BASOPHILS # (AUTO) 0.02 x10^3/uL (0-0.1); BASOPHILS % (AUTO) 0 % (0-1); EOSINOPHILS # (AUTO) 0.07 x10^3/uL (0-0.4); EOSINOPHILS % (AUTO) 1 % (1-7); LYMPHOCYTES # (AUTO) 0.96 x10^3/uL (1-3.4); LYMPHOCYTES % (AUTO) 8 % (22-44); MD NO; MEAN CORPUSCULAR HEMOGLOBIN 30.8 pg (27.0-34.8); MEAN CORPUSCULAR HGB CONC 32.9 g/dL (32.4-35.8); MEAN CORPUSCULAR VOLUME 93.8 fL (80-100); MEAN PLATELET VOLUME 8.9 fL (7.4-10.4); MONOCYTES # (AUTO) 1.16 x10^3/uL (0.2-0.8); MONOCYTES % (AUTO) 9 % (2-9); NEUTROPHILS # (AUTO) 10.04 x10^3/uL (1.8-6.8); NEUTROPHILS % (AUTO) 82 % (42-75); PLATELET COUNT 135 x10^3/uL (130-400); RED BLOOD COUNT 2.66 x10^6/uL (3.82-5.3); RED CELL DISTRIBUTION WIDTH 17.5 % (9.6-15.2)
[2017-07-31 05:02] LABS: ALBUMIN 1.7 g/dL (3.4-5.0); ANION GAP 11 mmol/L (5-15); CALCIUM 8.2 mg/dL (8.5-10.1); CHLORIDE 108 mmol/L (98-107)
[2017-07-31 05:06] LABS: ALANINE AMINOTRANSFERASE 33 U/L (12-78); ALKALINE PHOSPHATASE 274 U/L (45-117); CREATININE 4.53 mg/dL (0.55-1.02); TOTAL PROTEIN 6.5 g/dL (6.4-8.2)
[2017-07-31] MEDS: LEVOTHYROXINE 100 MCG TABLET PO SCH (05:59)
[2017-07-31] MEDS: ALBUTEROL/IPRATROPIUM 2.5MG/0.5MG, 3 ML INLINE SCH ×4 (06:35→18:30)
[2017-07-31] MEDS: CALCITRIOL 0.25 MCG CAPSULE PO SCH (08:50)
[2017-07-31] MEDS: ASPIRIN 81 MG TABLET CHEW PO SCH (08:50)
[2017-07-31] MEDS: MINERA CRM, 60GM TP SCH ×3 (08:59→20:16)
[2017-07-31] MEDS: AQUAPHOR NATURAL HEALING OINT 50GM TP SCH ×3 (08:59→20:15)
[2017-07-31] MEDS: TRIAMCINOLONE CRM 0.1%, 15GM TP SCH ×2 (09:00→20:16)
[2017-07-31] MEDS: NYSTATIN TOPICAL POWDER 15GM TP SCH ×2 (09:00→20:16)
[2017-07-31] MEDS: ATORVASTATIN 40 MG TABLET PO SCH (20:15)
[2017-07-31] MEDS: FENTANYL PF 100 MCG/2ML IVPush PRN (20:48)
[2017-07-31] MEDS: DIPHENHYDRAMINE 25 MG CAPSULE PO PRN (23:22)
[2017-08-01] MEDS: CLINDAMYCIN 300 MG CAPSULE PO SCH ×4 (03:52→20:08)
[2017-08-01 04:49] LABS: BASOPHILS # (AUTO) 0.05 x10^3/uL (0-0.1); BASOPHILS % (AUTO) 0 % (0-1); EOSINOPHILS # (AUTO) 0.06 x10^3/uL (0-0.4); EOSINOPHILS % (AUTO) 1 % (1-7); HCT (SEDRATE) 24.8 % (34.6-47.8); LYMPHOCYTES # (AUTO) 0.88 x10^3/uL (1-3.4); LYMPHOCYTES % (AUTO) 8 % (22-44); MD NO; MEAN CORPUSCULAR HEMOGLOBIN 31.7 pg (27.0-34.8); MEAN CORPUSCULAR HGB CONC 33.8 g/dL (32.4-35.8); MEAN CORPUSCULAR VOLUME 93.7 fL (80-100); MEAN PLATELET VOLUME 8.5 fL (7.4-10.4); MONOCYTES # (AUTO) 1.17 x10^3/uL (0.2-0.8); MONOCYTES % (AUTO) 11 % (2-9); NEUTROPHILS # (AUTO) 8.89 x10^3/uL (1.8-6.8); NEUTROPHILS % (AUTO) 80 % (42-75); PLATELET COUNT 161 x10^3/uL (130-400); RED BLOOD COUNT 2.65 x10^6/uL (3.82-5.3); RED CELL DISTRIBUTION WIDTH 17.2 % (9.6-15.2)
[2017-08-01 05:02] LABS: ALANINE AMINOTRANSFERASE 47 U/L (12-78); ALBUMIN 1.7 g/dL (3.4-5.0); ANION GAP 9 mmol/L (5-15); CALCIUM 8.3 mg/dL (8.5-10.1); CHLORIDE 113 mmol/L (98-107); CREATININE 4.51 mg/dL (0.55-1.02)
[2017-08-01 05:10] LABS: ALKALINE PHOSPHATASE 334 U/L (45-117); BILIRUBIN,TOTAL 0.8 mg/dL (0.2-1.0); CREATINE KINASE, TOTAL 31 U/L (26-192); TOTAL PROTEIN 6.9 g/dL (6.4-8.2)
[2017-08-01] MEDS: LEVOTHYROXINE 100 MCG TABLET PO SCH (05:18)
[2017-08-01 05:34] LABS: SEDIMENTATION RATE 117 mm/hr (0-20)
[2017-08-01] MEDS: ALBUTEROL/IPRATROPIUM 2.5MG/0.5MG, 3 ML INLINE SCH ×4 (07:12→20:55)
[2017-08-01] MEDS: CALCITRIOL 0.25 MCG CAPSULE PO SCH (08:24)
[2017-08-01] MEDS: ASPIRIN 81 MG TABLET CHEW PO SCH (08:24)
[2017-08-01] MEDS: MINERA CRM, 60GM TP SCH ×3 (08:31→22:21)
[2017-08-01] MEDS: TRIAMCINOLONE CRM 0.1%, 15GM TP SCH ×2 (08:32→22:24)
[2017-08-01] MEDS: AQUAPHOR NATURAL HEALING OINT 50GM TP SCH ×3 (08:32→22:20)
[2017-08-01] MEDS: NYSTATIN TOPICAL POWDER 15GM TP SCH ×2 (08:39→22:23)
[2017-08-01] MEDS ORDERED: RIFAMPIN 600 MG IVPB SCH (09:30)
[2017-08-01] MEDS: RIFAMPIN 600 MG in SODIUM CHLORIDE 0.9% 100 ML IV SCH (10:20)
[2017-08-01] MEDS: DAPTOMYCIN 500 MG in SODIUM CHLORIDE 0.9% 100 ML IVPB SCH (13:10)
[2017-08-01] MEDS: ATORVASTATIN 40 MG TABLET PO SCH (20:08)
[2017-08-02] MEDS: CLINDAMYCIN 300 MG CAPSULE PO SCH ×4 (03:00→20:42)
[2017-08-02 04:42] LABS: ANION GAP 9 mmol/L (5-15); CALCIUM 8.2 mg/dL (8.5-10.1); CHLORIDE 117 mmol/L (98-107)
[2017-08-02 04:43] LABS: CREATININE 4.45 mg/dL (0.55-1.02)
[2017-08-02] MEDS: LEVOTHYROXINE 100 MCG TABLET PO SCH (06:00)
[2017-08-02] MEDS: ALBUTEROL/IPRATROPIUM 2.5MG/0.5MG, 3 ML INLINE SCH (08:37)
[2017-08-02] MEDS: ASPIRIN 81 MG TABLET CHEW PO SCH (09:00)
[2017-08-02] MEDS: CALCITRIOL 0.25 MCG CAPSULE PO SCH (09:00)
[2017-08-02] MEDS: MINERA CRM, 60GM TP SCH ×3 (10:19→20:43)
[2017-08-02] MEDS: NYSTATIN TOPICAL POWDER 15GM TP SCH ×2 (10:19→20:43)
[2017-08-02] MEDS: TRIAMCINOLONE CRM 0.1%, 15GM TP SCH ×2 (10:20→20:43)
[2017-08-02] MEDS ORDERED: LIDOCAINE-MPF 1%, 2ML ONE (11:16)
[2017-08-02] MEDS: RIFAMPIN 600 MG in SODIUM CHLORIDE 0.9% 100 ML IV SCH (11:28)
[2017-08-02] MEDS: AQUAPHOR NATURAL HEALING OINT 50GM TP SCH ×3 (11:29→20:43)
[2017-08-02] MEDS ORDERED: MIDAZOLAM 1 MG/ML, 2ML ONE (11:47)
[2017-08-02] MEDS ORDERED: MIDAZOLAM 1 MG/ML, 2ML IVPush ONE (12:00)
[2017-08-02] MEDS ORDERED: DIAZEPAM 5 MG/ML, 2ML IVPush PRN (15:00)
[2017-08-02] MEDS: LINEZOLID PMX 600MG/300ML 300 ML IV SCH (20:42)
[2017-08-02] MEDS: ATORVASTATIN 40 MG TABLET PO SCH (20:43)
[2017-08-03] MEDS: CLINDAMYCIN 300 MG CAPSULE PO SCH ×4 (03:37→21:29)
[2017-08-03] MEDS: LEVOTHYROXINE 100 MCG TABLET PO SCH (05:43)
[2017-08-03] MEDS ORDERED: ALBUTEROL/IPRATROPIUM 2.5MG/0.5MG, 3 ML INLINE PRN (07:00)
[2017-08-03] MEDS: CALCITRIOL 0.25 MCG CAPSULE PO SCH (09:00)
[2017-08-03] MEDS: ASPIRIN 81 MG TABLET CHEW PO SCH (09:00)
[2017-08-03] MEDS: NYSTATIN TOPICAL POWDER 15GM TP SCH ×2 (09:28→21:30)
[2017-08-03] MEDS: AQUAPHOR NATURAL HEALING OINT 50GM TP SCH ×3 (09:28→21:29)
[2017-08-03] MEDS: MINERA CRM, 60GM TP SCH ×3 (09:28→21:31)
[2017-08-03] MEDS: TRIAMCINOLONE CRM 0.1%, 15GM TP SCH ×2 (09:29→21:30)
[2017-08-03] MEDS: LINEZOLID PMX 600MG/300ML 300 ML IV SCH ×2 (09:31→21:29)
[2017-08-03] MEDS: RIFAMPIN 600 MG in SODIUM CHLORIDE 0.9% 100 ML IV SCH (12:44)
[2017-08-03] MEDS: DAPTOMYCIN 500 MG in SODIUM CHLORIDE 0.9% 100 ML IVPB SCH (13:29)
[2017-08-03] MEDS ORDERED: GADOBUTROL 15 MMOL/15 ML PFS ONE (16:34)
[2017-08-03] MEDS: ATORVASTATIN 40 MG TABLET PO SCH (21:29)
[2017-08-04] MEDS: CLINDAMYCIN 300 MG CAPSULE PO SCH ×4 (05:02→20:57)
[2017-08-04 05:44] LABS: BASOPHILS # (AUTO) 0.04 x10^3/uL (0-0.1); BASOPHILS % (AUTO) 0 % (0-1); EOSINOPHILS # (AUTO) 0.08 x10^3/uL (0-0.4); EOSINOPHILS % (AUTO) 1 % (1-7); LYMPHOCYTES # (AUTO) 0.99 x10^3/uL (1-3.4); LYMPHOCYTES % (AUTO) 11 % (22-44); MD NO; MEAN CORPUSCULAR HEMOGLOBIN 30.6 pg (27.0-34.8); MEAN CORPUSCULAR HGB CONC 32.8 g/dL (32.4-35.8); MEAN CORPUSCULAR VOLUME 93.6 fL (80-100); MEAN PLATELET VOLUME 8.8 fL (7.4-10.4); MONOCYTES # (AUTO) 0.64 x10^3/uL (0.2-0.8); MONOCYTES % (AUTO) 7 % (2-9); NEUTROPHILS # (AUTO) 7.01 x10^3/uL (1.8-6.8); NEUTROPHILS % (AUTO) 80 % (42-75); PLATELET COUNT 226 x10^3/uL (130-400); RED BLOOD COUNT 2.75 x10^6/uL (3.82-5.3); RED CELL DISTRIBUTION WIDTH 16.6 % (9.6-15.2)
[2017-08-04 05:47] LABS: ALANINE AMINOTRANSFERASE 41 U/L (12-78); ALBUMIN 1.7 g/dL (3.4-5.0); ANION GAP 4 mmol/L (5-15); CALCIUM 7.9 mg/dL (8.5-10.1); CHLORIDE 109 mmol/L (98-107)
[2017-08-04 05:50] LABS: ALKALINE PHOSPHATASE 380 U/L (45-117); CREATININE 2.75 mg/dL (0.55-1.02); TOTAL PROTEIN 7.1 g/dL (6.4-8.2)
[2017-08-04] MEDS: LEVOTHYROXINE 100 MCG TABLET PO SCH (06:21)
[2017-08-04] MEDS: ASPIRIN 81 MG TABLET CHEW PO SCH (08:48)
[2017-08-04] MEDS: NYSTATIN TOPICAL POWDER 15GM TP SCH ×2 (08:48→20:57)
[2017-08-04] MEDS: CALCITRIOL 0.25 MCG CAPSULE PO SCH (08:48)
[2017-08-04] MEDS: AQUAPHOR NATURAL HEALING OINT 50GM TP SCH ×3 (08:48→20:57)
[2017-08-04] MEDS: MINERA CRM, 60GM TP SCH ×3 (08:48→20:58)
[2017-08-04] MEDS: TRIAMCINOLONE CRM 0.1%, 15GM TP SCH ×2 (08:49→20:58)
[2017-08-04] MEDS: LINEZOLID PMX 600MG/300ML 300 ML IV SCH ×2 (10:35→20:57)
[2017-08-04] MEDS: RIFAMPIN 600 MG in SODIUM CHLORIDE 0.9% 100 ML IV SCH (17:18)
[2017-08-04] MEDS: ATORVASTATIN 40 MG TABLET PO SCH (20:57)
[2017-08-05] MEDS: CLINDAMYCIN 300 MG CAPSULE PO SCH ×4 (04:22→21:19)
[2017-08-05] MEDS: LEVOTHYROXINE 100 MCG TABLET PO SCH (04:22)
[2017-08-05 04:36] LABS: BASOPHILS # (AUTO) 0.02 x10^3/uL (0-0.1); BASOPHILS % (AUTO) 0 % (0-1); EOSINOPHILS # (AUTO) 0.08 x10^3/uL (0-0.4); EOSINOPHILS % (AUTO) 1 % (1-7); LYMPHOCYTES # (AUTO) 1.22 x10^3/uL (1-3.4); LYMPHOCYTES % (AUTO) 13 % (22-44); MD NO; MEAN CORPUSCULAR HEMOGLOBIN 30.7 pg (27.0-34.8); MEAN CORPUSCULAR HGB CONC 32.4 g/dL (32.4-35.8); MEAN CORPUSCULAR VOLUME 94.8 fL (80-100); MEAN PLATELET VOLUME 8.9 fL (7.4-10.4); MONOCYTES % (AUTO) 7 % (2-9); NEUTROPHILS # (AUTO) 7.47 x10^3/uL (1.8-6.8); NEUTROPHILS % (AUTO) 79 % (42-75); PLATELET COUNT 240 x10^3/uL (130-400); RED BLOOD COUNT 2.88 x10^6/uL (3.82-5.3)
[2017-08-05 04:52] LABS: CALCIUM 7.6 mg/dL (8.5-10.1); CHLORIDE 102 mmol/L (98-107)
[2017-08-05 04:56] LABS: ALANINE AMINOTRANSFERASE 37 U/L (12-78); ALBUMIN 1.8 g/dL (3.4-5.0); ALKALINE PHOSPHATASE 452 U/L (45-117); ANION GAP 7 mmol/L (5-15); BILIRUBIN,TOTAL 0.9 mg/dL (0.2-1.0); CREATININE 2.63 mg/dL (0.55-1.02); TOTAL PROTEIN 7.5 g/dL (6.4-8.2)
[2017-08-05] MEDS: ASPIRIN 81 MG TABLET CHEW PO SCH (09:24)
[2017-08-05] MEDS: CALCITRIOL 0.25 MCG CAPSULE PO SCH (09:24)
[2017-08-05] MEDS: LINEZOLID PMX 600MG/300ML 300 ML IV SCH ×2 (09:24→21:41)
[2017-08-05] MEDS: LACTOBACILLUS CHEW TABLET PO SCH ×3 (09:24→21:19)
[2017-08-05] MEDS: NYSTATIN TOPICAL POWDER 15GM TP SCH ×2 (09:24→21:00)
[2017-08-05] MEDS: GENTAMICIN 160 MG in SODIUM CHLORIDE 0.9% 50 ML IV SCH (12:12)
[2017-08-05] MEDS: RIFAMPIN 600 MG in SODIUM CHLORIDE 0.9% 100 ML IV SCH (13:53)
[2017-08-05] MEDS: DAPTOMYCIN 500 MG in SODIUM CHLORIDE 0.9% 100 ML IVPB SCH (16:01)
[2017-08-05 20:32] VITALS: BP 119/72
[2017-08-05] MEDS: ATORVASTATIN 40 MG TABLET PO SCH (21:19)
[2017-08-06 02:27] VITALS: BP 119/75
[2017-08-06] MEDS: CLINDAMYCIN 300 MG CAPSULE PO SCH ×4 (02:48→22:06)
[2017-08-06] MEDS: LEVOTHYROXINE 100 MCG TABLET PO SCH (05:46)
[2017-08-06 08:47] VITALS: BP 120/70
[2017-08-06] MEDS ORDERED: GENTAMICIN 160 MG in SODIUM CHLORIDE 0.9% 50 ML IV SCH (09:00)
[2017-08-06] MEDS: LINEZOLID PMX 600MG/300ML 300 ML IV SCH ×2 (10:33→22:06)
[2017-08-06] MEDS: LACTOBACILLUS CHEW TABLET PO SCH ×3 (10:55→22:06)
[2017-08-06] MEDS: CALCITRIOL 0.25 MCG CAPSULE PO SCH (10:55)
[2017-08-06] MEDS: ASPIRIN 81 MG TABLET CHEW PO SCH (10:55)
[2017-08-06] MEDS: NYSTATIN TOPICAL POWDER 15GM TP SCH ×2 (13:45→22:06)
[2017-08-06] MEDS: RIFAMPIN 600 MG in SODIUM CHLORIDE 0.9% 100 ML IV SCH (14:06)
[2017-08-06 14:20] VITALS: BP 121/75
[2017-08-06 19:00] VITALS: BP 132/71
[2017-08-06] MEDS: ATORVASTATIN 40 MG TABLET PO SCH (22:06)
[2017-08-07 02:23] VITALS: BP 123/70
[2017-08-07] MEDS: CLINDAMYCIN 300 MG CAPSULE PO SCH (04:12)
[2017-08-07 06:04] LABS: BASOPHILS # (AUTO) 0.07 x10^3/uL (0-0.1); BASOPHILS % (AUTO) 1 % (0-1); EOSINOPHILS # (AUTO) 0.07 x10^3/uL (0-0.4); EOSINOPHILS % (AUTO) 1 % (1-7); LYMPHOCYTES # (AUTO) 1.09 x10^3/uL (1-3.4); LYMPHOCYTES % (AUTO) 12 % (22-44); MD NO; MEAN CORPUSCULAR HEMOGLOBIN 30.5 pg (27.0-34.8); MEAN CORPUSCULAR HGB CONC 32.6 g/dL (32.4-35.8); MEAN CORPUSCULAR VOLUME 93.6 fL (80-100); MEAN PLATELET VOLUME 8.7 fL (7.4-10.4); MONOCYTES # (AUTO) 0.76 x10^3/uL (0.2-0.8); MONOCYTES % (AUTO) 8 % (2-9); NEUTROPHILS % (AUTO) 79 % (42-75); PLATELET COUNT 292 x10^3/uL (130-400); RED BLOOD COUNT 2.82 x10^6/uL (3.82-5.3); RED CELL DISTRIBUTION WIDTH 15.5 % (9.6-15.2)
[2017-08-07 06:10] LABS: HCT (SEDRATE) 27.3 % (34.6-47.8)
[2017-08-07] MEDS: LEVOTHYROXINE 100 MCG TABLET PO SCH (06:11)
[2017-08-07 06:13] LABS: ALANINE AMINOTRANSFERASE 30 U/L (12-78); ALBUMIN 1.7 g/dL (3.4-5.0); ANION GAP 11 mmol/L (5-15); CALCIUM 8.4 mg/dL (8.5-10.1); CHLORIDE 103 mmol/L (98-107)
[2017-08-07 06:21] LABS: ALKALINE PHOSPHATASE 409 U/L (45-117); BILIRUBIN,TOTAL 0.8 mg/dL (0.2-1.0); CREATINE KINASE, TOTAL 20 U/L (26-192); CREATININE 3.98 mg/dL (0.55-1.02); TOTAL PROTEIN 7.8 g/dL (6.4-8.2)
[2017-08-07 07:19] VITALS: BP 132/72
[2017-08-07] MEDS: CALCITRIOL 0.25 MCG CAPSULE PO SCH (09:00)
[2017-08-07] MEDS: LACTOBACILLUS CHEW TABLET PO SCH ×3 (09:12→22:43)
[2017-08-07] MEDS: ASPIRIN 81 MG TABLET CHEW PO SCH (09:12)
[2017-08-07] MEDS: GENTAMICIN 160 MG in SODIUM CHLORIDE 0.9% 50 ML IV SCH (09:12)
[2017-08-07] MEDS: NYSTATIN TOPICAL POWDER 15GM TP SCH ×2 (09:13→20:37)
[2017-08-07] MEDS: LINEZOLID PMX 600MG/300ML 300 ML IV SCH ×2 (10:00→23:33)
[2017-08-07 10:03] VITALS: BP 130/73
[2017-08-07 12:13] VITALS: BP 132/75
[2017-08-07] MEDS ORDERED: ARANESP 100 MCG/ML **ESRD SQ SCH (13:30)
[2017-08-07] MEDS ORDERED: ARANESP 40 MCG/ML **ESRD SQ ONE (14:00)
[2017-08-07] MEDS ORDERED: ARANESP 60 MCG/ML **ESRD SQ ONE (14:00)
[2017-08-07] MEDS: RIFAMPIN 600 MG in SODIUM CHLORIDE 0.9% 100 ML IV SCH (15:17)
[2017-08-07 20:56] VITALS: BP 145/82
[2017-08-07] MEDS: DAPTOMYCIN 500 MG in SODIUM CHLORIDE 0.9% 100 ML IVPB SCH (22:43)
[2017-08-07] MEDS: ATORVASTATIN 40 MG TABLET PO SCH (22:44)
[2017-08-08 02:15] VITALS: BP 132/72
[2017-08-08] MEDS: LEVOTHYROXINE 100 MCG TABLET PO SCH (07:00)
[2017-08-08 07:44] VITALS: BP 147/83
[2017-08-08] MEDS: CALCITRIOL 0.25 MCG CAPSULE PO SCH (07:57)
[2017-08-08] MEDS: LACTOBACILLUS CHEW TABLET PO SCH ×3 (07:57→23:26)
[2017-08-08] MEDS: ASPIRIN 81 MG TABLET CHEW PO SCH (07:57)
[2017-08-08] MEDS: NYSTATIN TOPICAL POWDER 15GM TP SCH ×2 (07:58→23:31)
[2017-08-08 07:59] LABS: BASOPHILS # (AUTO) 0.08 x10^3/uL (0-0.1); BASOPHILS % (AUTO) 1 % (0-1); EOSINOPHILS # (AUTO) 0.14 x10^3/uL (0-0.4); EOSINOPHILS % (AUTO) 1 % (1-7); LYMPHOCYTES # (AUTO) 1.07 x10^3/uL (1-3.4); LYMPHOCYTES % (AUTO) 11 % (22-44); MD NO; MEAN CORPUSCULAR HEMOGLOBIN 30.3 pg (27.0-34.8); MEAN CORPUSCULAR HGB CONC 32.8 g/dL (32.4-35.8); MEAN CORPUSCULAR VOLUME 92.6 fL (80-100); MEAN PLATELET VOLUME 8.4 fL (7.4-10.4); MONOCYTES # (AUTO) 0.86 x10^3/uL (0.2-0.8); MONOCYTES % (AUTO) 9 % (2-9); NEUTROPHILS # (AUTO) 7.94 x10^3/uL (1.8-6.8); NEUTROPHILS % (AUTO) 79 % (42-75); PLATELET COUNT 356 x10^3/uL (130-400); RED BLOOD COUNT 2.65 x10^6/uL (3.82-5.3); RED CELL DISTRIBUTION WIDTH 15.9 % (9.6-15.2)
[2017-08-08 08:18] LABS: ALBUMIN 1.8 g/dL (3.4-5.0); ANION GAP 8 mmol/L (5-15); CALCIUM 8.4 mg/dL (8.5-10.1); CHLORIDE 105 mmol/L (98-107); CREATININE 3.98 mg/dL (0.55-1.02)
[2017-08-08] MEDS: LINEZOLID PMX 600MG/300ML 300 ML IV SCH ×2 (11:56→23:44)
[2017-08-08 13:02] VITALS: BP 151/91
[2017-08-08] MEDS: RIFAMPIN 600 MG in SODIUM CHLORIDE 0.9% 100 ML IV SCH (16:01)
[2017-08-08 20:10] VITALS: BP 130/82
[2017-08-08] MEDS: ATORVASTATIN 40 MG TABLET PO SCH (23:26)
[2017-08-09 01:21] VITALS: BP 128/79
[2017-08-09] MEDS: LEVOTHYROXINE 100 MCG TABLET PO SCH (04:25)
[2017-08-09 05:16] LABS: ALBUMIN 1.6 g/dL (3.4-5.0); ANION GAP 10 mmol/L (5-15); CALCIUM 8.2 mg/dL (8.5-10.1); CHLORIDE 108 mmol/L (98-107)
[2017-08-09 05:21] LABS: ALANINE AMINOTRANSFERASE 25 U/L (12-78); ALKALINE PHOSPHATASE 299 U/L (45-117); BILIRUBIN,TOTAL 1.3 mg/dL (0.2-1.0); CREATININE 3.96 mg/dL (0.55-1.02); TOTAL PROTEIN 7.6 g/dL (6.4-8.2)
[2017-08-09 05:32] LABS: BASOPHILS # (AUTO) 0.08 x10^3/uL (0-0.1); BASOPHILS % (AUTO) 1 % (0-1); EOSINOPHILS # (AUTO) 0.09 x10^3/uL (0-0.4); EOSINOPHILS % (AUTO) 1 % (1-7); LYMPHOCYTES # (AUTO) 0.96 x10^3/uL (1-3.4); LYMPHOCYTES % (AUTO) 13 % (22-44); MD NO; MEAN CORPUSCULAR HEMOGLOBIN 30.7 pg (27.0-34.8); MEAN CORPUSCULAR VOLUME 93.1 fL (80-100); MEAN PLATELET VOLUME 8.4 fL (7.4-10.4); MONOCYTES # (AUTO) 0.68 x10^3/uL (0.2-0.8); MONOCYTES % (AUTO) 9 % (2-9); NEUTROPHILS # (AUTO) 5.61 x10^3/uL (1.8-6.8); NEUTROPHILS % (AUTO) 76 % (42-75); PLATELET COUNT 336 x10^3/uL (130-400); RED BLOOD COUNT 2.54 x10^6/uL (3.82-5.3); RED CELL DISTRIBUTION WIDTH 14.8 % (9.6-15.2)
[2017-08-09 07:20] VITALS: BP 135/79
[2017-08-09] MEDS ORDERED: GENTAMICIN 80 MG/2 ML IV SCH (09:00)
[2017-08-09] MEDS: ASPIRIN 81 MG TABLET CHEW PO SCH (09:00)
[2017-08-09] MEDS ORDERED: GENTAMICIN 100 MG in SODIUM CHLORIDE 0.9% 50 ML IV SCH (09:00)
[2017-08-09] MEDS: LACTOBACILLUS CHEW TABLET PO SCH ×3 (09:00→20:52)
[2017-08-09] MEDS: CALCITRIOL 0.25 MCG CAPSULE PO SCH (09:00)
[2017-08-09] MEDS: NYSTATIN TOPICAL POWDER 15GM TP SCH ×2 (09:36→20:52)
[2017-08-09] MEDS: LINEZOLID PMX 600MG/300ML 300 ML IV SCH ×2 (12:01→23:42)
[2017-08-09 13:00] VITALS: BP 120/75
[2017-08-09 13:16] LABS: CLOSTRIDIUM DIFFICILE ANTIGEN NEGATIVE; CLOSTRIDIUM DIFFICILE TOXIN NEGATIVE (Negative)
[2017-08-09] MEDS: RIFAMPIN 600 MG in SODIUM CHLORIDE 0.9% 100 ML IV SCH (15:30)
[2017-08-09] MEDS: ATORVASTATIN 40 MG TABLET PO SCH (20:52)
[2017-08-09 20:53] VITALS: BP 110/74
[2017-08-09] MEDS: DAPTOMYCIN 500 MG in SODIUM CHLORIDE 0.9% 100 ML IVPB SCH (22:43)
[2017-08-10 01:36] VITALS: BP 117/73
[2017-08-10 05:24] LABS: ALBUMIN 1.7 g/dL (3.4-5.0); ANION GAP 11 mmol/L (5-15); BASOPHILS # (AUTO) 0.08 x10^3/uL (0-0.1); BASOPHILS % (AUTO) 1 % (0-1); CHLORIDE 109 mmol/L (98-107); EOSINOPHILS # (AUTO) 0.13 x10^3/uL (0-0.4); EOSINOPHILS % (AUTO) 2 % (1-7); LYMPHOCYTES # (AUTO) 0.89 x10^3/uL (1-3.4); LYMPHOCYTES % (AUTO) 14 % (22-44); MD NO; MEAN CORPUSCULAR HEMOGLOBIN 31.2 pg (27.0-34.8); MEAN CORPUSCULAR HGB CONC 33.3 g/dL (32.4-35.8); MEAN CORPUSCULAR VOLUME 93.7 fL (80-100); MEAN PLATELET VOLUME 8.4 fL (7.4-10.4); MONOCYTES # (AUTO) 0.72 x10^3/uL (0.2-0.8); MONOCYTES % (AUTO) 12 % (2-9); NEUTROPHILS # (AUTO) 4.35 x10^3/uL (1.8-6.8); NEUTROPHILS % (AUTO) 70 % (42-75); PLATELET COUNT 359 x10^3/uL (130-400); RED BLOOD COUNT 2.52 x10^6/uL (3.82-5.3); RED CELL DISTRIBUTION WIDTH 15.5 % (9.6-15.2)
[2017-08-10 05:26] LABS: CREATININE 4.13 mg/dL (0.55-1.02)
[2017-08-10] MEDS: LEVOTHYROXINE 100 MCG TABLET PO SCH (05:28)
[2017-08-10 10:16] VITALS: BP 130/78
[2017-08-10] MEDS: LACTOBACILLUS CHEW TABLET PO SCH ×3 (11:09→21:14)
[2017-08-10] MEDS: ASPIRIN 81 MG TABLET CHEW PO SCH (11:09)
[2017-08-10] MEDS: CALCITRIOL 0.25 MCG CAPSULE PO SCH (11:09)
[2017-08-10] MEDS: NYSTATIN TOPICAL POWDER 15GM TP SCH ×2 (11:10→21:14)
[2017-08-10] MEDS: LINEZOLID PMX 600MG/300ML 300 ML IV SCH ×2 (11:32→23:48)
[2017-08-10 14:07] VITALS: BP 126/75
[2017-08-10] MEDS: RIFAMPIN 600 MG in SODIUM CHLORIDE 0.9% 100 ML IV SCH (15:00)
[2017-08-10] MEDS: ATORVASTATIN 40 MG TABLET PO SCH (21:14)
[2017-08-10 21:43] VITALS: BP 122/75
[2017-08-11 03:22] VITALS: BP 132/81
[2017-08-11 05:53] LABS: BASOPHILS # (AUTO) 0.06 x10^3/uL (0-0.1); BASOPHILS % (AUTO) 1 % (0-1); EOSINOPHILS # (AUTO) 0.17 x10^3/uL (0-0.4); EOSINOPHILS % (AUTO) 4 % (1-7); LYMPHOCYTES # (AUTO) 0.76 x10^3/uL (1-3.4); LYMPHOCYTES % (AUTO) 17 % (22-44); MD NO; MEAN CORPUSCULAR HEMOGLOBIN 30.7 pg (27.0-34.8); MEAN CORPUSCULAR HGB CONC 32.7 g/dL (32.4-35.8); MONOCYTES # (AUTO) 0.53 x10^3/uL (0.2-0.8); MONOCYTES % (AUTO) 12 % (2-9); NEUTROPHILS # (AUTO) 2.97 x10^3/uL (1.8-6.8); NEUTROPHILS % (AUTO) 66 % (42-75); PLATELET COUNT 410 x10^3/uL (130-400); RED BLOOD COUNT 2.51 x10^6/uL (3.82-5.3); RED CELL DISTRIBUTION WIDTH 15.8 % (9.6-15.2)
[2017-08-11] MEDS: LEVOTHYROXINE 100 MCG TABLET PO SCH (06:00)
[2017-08-11 06:13] LABS: CHLORIDE 110 mmol/L (98-107)
[2017-08-11 06:22] LABS: ANION GAP 12 mmol/L (5-15); CALCIUM 8.2 mg/dL (8.5-10.1); CREATININE 4.12 mg/dL (0.55-1.02)
[2017-08-11 06:23] LABS: ALBUMIN 1.7 g/dL (3.4-5.0)
[2017-08-11 08:01] VITALS: BP 134/76
[2017-08-11] MEDS: LACTOBACILLUS CHEW TABLET PO SCH ×3 (08:38→23:15)
[2017-08-11] MEDS: CALCITRIOL 0.25 MCG CAPSULE PO SCH (08:38)
[2017-08-11] MEDS: ASPIRIN 81 MG TABLET CHEW PO SCH (08:38)
[2017-08-11] MEDS: NYSTATIN TOPICAL POWDER 15GM TP SCH ×2 (08:39→23:15)
[2017-08-11 10:17] LABS: INTERNATIONAL NORMALIZED RATIO 1.09 (0.93-1.1); PROTHROMBIN TIME 11.2 Seconds (9.6-11.5)
[2017-08-11] MEDS: LINEZOLID PMX 600MG/300ML 300 ML IV SCH (11:30)
[2017-08-11] MEDS ORDERED: LIDOCAINE-MPF 2% ,5ML ONE (12:49)
[2017-08-11] MEDS ORDERED: FENTANYL PF 100 MCG/2ML ONE (13:11)
[2017-08-11] MEDS ORDERED: MIDAZOLAM 1 MG/ML, 5ML ONE (13:12)
[2017-08-11] MEDS ORDERED: FLUMAZENIL 0.1 MG/1 ML, 5ML ONE (13:12)
[2017-08-11] MEDS ORDERED: NALOXONE 1 MG/ML, 2ML ONE (13:12)
[2017-08-11 14:32] VITALS: BP 127/78
[2017-08-11] MEDS: RIFAMPIN 600 MG in SODIUM CHLORIDE 0.9% 100 ML IV SCH (17:45)
[2017-08-11 21:44] VITALS: BP 129/83
[2017-08-11] MEDS: ATORVASTATIN 40 MG TABLET PO SCH (23:15)
[2017-08-11] MEDS: DAPTOMYCIN 500 MG in SODIUM CHLORIDE 0.9% 100 ML IVPB SCH (23:15)
[2017-08-12] MEDS: LINEZOLID PMX 600MG/300ML 300 ML IV SCH (00:19)
[2017-08-12 03:56] VITALS: BP 132/84
[2017-08-12 04:57] LABS: BASOPHILS # (AUTO) 0.08 x10^3/uL (0-0.1); BASOPHILS % (AUTO) 2 % (0-1); EOSINOPHILS # (AUTO) 0.11 x10^3/uL (0-0.4); EOSINOPHILS % (AUTO) 2 % (1-7); LYMPHOCYTES % (AUTO) 15 % (22-44); MD NO; MEAN CORPUSCULAR HEMOGLOBIN 30.4 pg (27.0-34.8); MEAN CORPUSCULAR HGB CONC 32.7 g/dL (32.4-35.8); MEAN CORPUSCULAR VOLUME 92.8 fL (80-100); MEAN PLATELET VOLUME 7.4 fL (7.4-10.4); MONOCYTES # (AUTO) 0.59 x10^3/uL (0.2-0.8); MONOCYTES % (AUTO) 11 % (2-9); NEUTROPHILS # (AUTO) 3.63 x10^3/uL (1.8-6.8); NEUTROPHILS % (AUTO) 70 % (42-75); PLATELET COUNT 412 x10^3/uL (130-400); RED BLOOD COUNT 2.57 x10^6/uL (3.82-5.3); RED CELL DISTRIBUTION WIDTH 15.3 % (9.6-15.2)
[2017-08-12 05:01] LABS: CHLORIDE 103 mmol/L (98-107)
[2017-08-12 05:06] LABS: ALBUMIN 1.7 g/dL (3.4-5.0); ANION GAP 7 mmol/L (5-15); CALCIUM 8.1 mg/dL (8.5-10.1); CREATININE 2.35 mg/dL (0.55-1.02)
[2017-08-12] MEDS: LEVOTHYROXINE 100 MCG TABLET PO SCH (05:33)
[2017-08-12 08:37] VITALS: BP 114/72
[2017-08-12] MEDS ORDERED: PHEN28OI6 TP (09:00)
[2017-08-12] MEDS ORDERED: HYDR20VI3 IVPush (09:00)
[2017-08-12] MEDS ORDERED: NYST60PO TP (09:00)
[2017-08-12] MEDS ORDERED: DOCU-131 PO (09:00)
[2017-08-12] MEDS ORDERED: ONDA4TAB13 PO (09:00)
[2017-08-12] MEDS ORDERED: LEVO100T PO (09:00)
[2017-08-12] MEDS ORDERED: RIFAMPIN 300 MG CAPSULE PO SCH (09:00)
[2017-08-12] MEDS ORDERED: POLY17PO5 PO (09:00)
[2017-08-12] MEDS ORDERED: CALC0.25 PO (09:00)
[2017-08-12] MEDS ORDERED: CLOPIDOGREL 75 MG TABLET PO SCH (09:00)
[2017-08-12] MEDS ORDERED: ACID1TAB7 PO (09:00)
[2017-08-12] MEDS ORDERED: ASPI-515 PO (09:00)
[2017-08-12] MEDS ORDERED: OXYC5TAB3 PO (09:00)
[2017-08-12] MEDS ORDERED: RIFA300C3 PO (09:00)
[2017-08-12] MEDS ORDERED: CLOP75TA PO (09:00)
[2017-08-12] MEDS ORDERED: DARB100V SQ (09:00)
[2017-08-12] MEDS ORDERED: Pharmacy May Adj For Renal Fx MC (09:00)
[2017-08-12] MEDS ORDERED: BISA10SU65 PR (09:00)
[2017-08-12] MEDS ORDERED: ACET325T14 PO (09:00)
[2017-08-12] MEDS: CALCITRIOL 0.25 MCG CAPSULE PO SCH (09:05)
[2017-08-12] MEDS: LACTOBACILLUS CHEW TABLET PO SCH (09:05)
[2017-08-12] MEDS: ASPIRIN 81 MG TABLET CHEW PO SCH (09:05)
[2017-08-12] MEDS: NYSTATIN TOPICAL POWDER 15GM TP SCH (09:07)
[2017-08-14] MEDS ORDERED: ARANESP 100 MCG/ML **ESRD SQ SCH (14:00)
== END 2017-08-12 16:10 | DRG 853 ==
LOC: ED 12:01 → 4WST 12:37 → CCU 07-28 13:57 → 4NOR 08-05 15:13 → 4WST 08-07 09:53
PROVIDERS: ADMIT Internal Medicine; ATTEND Internal Medicine
PROC: 5A1D70Z Performance of Urinary Filtration, Intermittent, Less than 6 Hours Per Day (ICD-10-PCS; principal; 2017-07-21)
PROC: 02HV33Z Insertion of Infusion Device into Superior Vena Cava, Percutaneous Approach (ICD-10-PCS; 2017-07-21)
PROC: B548ZZA Ultrasonography of Superior Vena Cava, Guidance (ICD-10-PCS; 2017-07-21)
PROC: 5A1D70Z Performance of Urinary Filtration, Intermittent, Less than 6 Hours Per Day (ICD-10-PCS; 2017-07-22)
PROC: 5A1D70Z Performance of Urinary Filtration, Intermittent, Less than 6 Hours Per Day (ICD-10-PCS; 2017-07-23)
PROC: 5A1D70Z Performance of Urinary Filtration, Intermittent, Less than 6 Hours Per Day (ICD-10-PCS; 2017-07-24)
PROC: 5A1D70Z Performance of Urinary Filtration, Intermittent, Less than 6 Hours Per Day (ICD-10-PCS; 2017-07-26)
PROC: 0S9D3ZX Drainage of Left Knee Joint, Percutaneous Approach, Diagnostic (ICD-10-PCS; 2017-07-27)
PROC: 0S9C0ZZ Drainage of Right Knee Joint, Open Approach (ICD-10-PCS; 2017-07-28)
PROC: 0SBD0ZZ Excision of Left Knee Joint, Open Approach (ICD-10-PCS; 2017-07-28)
PROC: 30233N1 Transfusion of Nonautologous Red Blood Cells into Peripheral Vein, Percutaneous Approach (ICD-10-PCS; 2017-07-29)
PROC: 5A09357 Assistance with Respiratory Ventilation, Less than 24 Consecutive Hours, Continuous Positive Airway Pressure (ICD-10-PCS; 2017-07-30)
PROC: 5A1D70Z Performance of Urinary Filtration, Intermittent, Less than 6 Hours Per Day (ICD-10-PCS; 2017-08-02)
PROC: 02HV33Z Insertion of Infusion Device into Superior Vena Cava, Percutaneous Approach (ICD-10-PCS; 2017-08-02)
PROC: 5A1D70Z Performance of Urinary Filtration, Intermittent, Less than 6 Hours Per Day (ICD-10-PCS; 2017-08-03)
PROC: 5A1D70Z Performance of Urinary Filtration, Intermittent, Less than 6 Hours Per Day (ICD-10-PCS; 2017-08-04)
PROC: 5A1D70Z Performance of Urinary Filtration, Intermittent, Less than 6 Hours Per Day (ICD-10-PCS; 2017-08-11)
PROC: 0JH63XZ Insertion of Tunneled Vascular Access Device into Chest Subcutaneous Tissue and Fascia, Percutaneous Approach (ICD-10-PCS; 2017-08-11)
PROC: 02HV33Z Insertion of Infusion Device into Superior Vena Cava, Percutaneous Approach (ICD-10-PCS; 2017-08-11)
PROC: B5181ZA Fluoroscopy of Superior Vena Cava using Low Osmolar Contrast, Guidance (ICD-10-PCS; 2017-08-11)
DX: A41.02 Sepsis due to Methicillin resistant Staphylococcus aureus (principal); E43 Unspecified severe protein-calorie malnutrition; G06.1 Intraspinal abscess and granuloma; G93.41 Metabolic encephalopathy; I63.40 Cerebral infarction due to embolism of unspecified cerebral artery; J96.01 Acute respiratory failure with hypoxia; N17.0 Acute kidney failure with tubular necrosis; N18.6 End stage renal disease; E87.1 Hypo-osmolality and hyponatremia; I13.2 Hypertensive heart and chronic kidney disease with heart failure and with stage 5 chronic kidney disease, or end stage renal disease; I38 Endocarditis, valve unspecified; I50.30 Unspecified diastolic (congestive) heart failure; M00.9 Pyogenic arthritis, unspecified; N25.81 Secondary hyperparathyroidism of renal origin; N39.0 Urinary tract infection, site not specified; Z99.11 Dependence on respirator [ventilator] status; G81.94 Hemiplegia, unspecified affecting left nondominant side; B19.20 Unspecified viral hepatitis C without hepatic coma; D63.1 Anemia in chronic kidney disease; D69.6 Thrombocytopenia, unspecified; E03.9 Hypothyroidism, unspecified; E11.22 Type 2 diabetes mellitus with diabetic chronic kidney disease; E66.9 Obesity, unspecified; E78.5 Hyperlipidemia, unspecified; M25.462 Effusion, left knee; M25.461 Effusion, right knee; E83.39 Other disorders of phosphorus metabolism; E87.5 Hyperkalemia; E87.8 Other disorders of electrolyte and fluid balance, not elsewhere classified; I65.21 Occlusion and stenosis of right carotid artery; L20.84 Intrinsic (allergic) eczema; L27.0 Generalized skin eruption due to drugs and medicaments taken internally; M10.9 Gout, unspecified; N25.0 Renal osteodystrophy; R13.10 Dysphagia, unspecified; Z51.5 Encounter for palliative care; Z66 Do not resuscitate; Z80.9 Family history of malignant neoplasm, unspecified; Z82.49 Family history of ischemic heart disease and other diseases of the circulatory system; Z86.14 Personal history of Methicillin resistant Staphylococcus aureus infection; Z86.73 Personal history of transient ischemic attack (TIA), and cerebral infarction without residual deficits; Z87.891 Personal history of nicotine dependence; Z99.2 Dependence on renal dialysis; Z68.25 Body mass index [BMI] 25.0-25.9, adult
CPT/HCPCS: 20606; 36415; 36556; 36558; 36600; 70450; 70551; 71045; 71250; 72156; 72157; 72158; 74018; 74176; 74230; 76830; 76937; 77001; 80048; 80053; 80074; 80170; 80202; 81001; 82040; 82140; 82306; 82550; 82728; 82803; 82962; 83540; 83550; 83735; 83970; 84100; 84439; 84443; 84478; 84550; 85025; 85610; 85651; 85730; 85810; 86140; 86304; 86480; 86706; 86850; 86900; 86923; 87040; 87070; 87075; 87077; 87081; 87086; 87147; 87181; 87186; 87205; 87324; 87521; 89050; 89060; 93005; 93306; 93308; 93321; 93325; 93880; 94002; 94003; 94640; 96374; 96375; 99156; 99157; A9585; C1894; J0878; J0882; J1644; J1756; J1940; J2020; J2250; J2704; J3010; J3360; J3370; J3490; J7620; Q0162; C1750; C1751; G0365; J1580; J1642; J2310; J2370; J7050; P9016; Q0163

== ENCOUNTER 2017-10-27 20:02 | Inpatient (IN) | payer MEDICAID ==
[~2017-10-27] VITALS: Ht 180.3 cm; Wt 67.3 kg
[~2017-10-27 20:02] MED LIST changes: +ACET325T14 PO; +ACID1TAB7 PO; +ALLO100T30 PO; +AMLO5TAB7 PO; +ASPI-515 PO; +ATOR40TA78 PO; +BISA10SU65 PR; +CALC0.25 PO; +CARV3.1212 PO; +CLOP75TA PO; +DARB100V SQ; +DOCU-131 PO; +FERR-46 PO; +HYDR-3343 PO; +HYDR20VI3 IVPush; +LEVO100T PO; +LISI5TAB7 PO; +NYST60PO TP; +ONDA4TAB13 PO; +OXYC5TAB3 PO; +PHEN28OI6 TP; +POLY17PO5 PO; +Pharmacy May Adj For Renal Fx MC; +RIFA300C3 PO; +SODI650T PO; +TORS10TA4 PO
[2017-10-27] MEDS ORDERED: OMNIPAQUE 350 MG/ML, 100ML BOTTLE ONE (20:15)
[2017-10-27 20:33] LABS: BASOPHILS # (AUTO) 0.03 x10^3/uL (0-0.1); BASOPHILS % (AUTO) 1 % (0-1); EOSINOPHILS # (AUTO) 0.42 x10^3/uL (0-0.4); EOSINOPHILS % (AUTO) 8 % (1-7); LYMPHOCYTES # (AUTO) 1.47 x10^3/uL (1-3.4); LYMPHOCYTES % (AUTO) 28 % (22-44); MD NO; MEAN CORPUSCULAR HEMOGLOBIN 28.7 pg (27.0-34.8); MEAN CORPUSCULAR HGB CONC 32.5 g/dL (32.4-35.8); MEAN CORPUSCULAR VOLUME 88.2 fL (80-100); MEAN PLATELET VOLUME 7.8 fL (7.4-10.4); MONOCYTES # (AUTO) 0.58 x10^3/uL (0.2-0.8); MONOCYTES % (AUTO) 11 % (2-9); NEUTROPHILS # (AUTO) 2.87 x10^3/uL (1.8-6.8); NEUTROPHILS % (AUTO) 53 % (42-75); PLATELET COUNT 234 x10^3/uL (130-400); RED BLOOD COUNT 4.57 x10^6/uL (3.82-5.3); RED CELL DISTRIBUTION WIDTH 16.1 % (9.6-15.2)
[2017-10-27 20:45] LABS: INTERNATIONAL NORMALIZED RATIO 1.03 (0.93-1.1); PROTHROMBIN TIME 10.7 Seconds (9.6-11.5)
[2017-10-27] MEDS ORDERED: DESENEX (20:56)
[2017-10-27] MEDS ORDERED: AMANTADINE PO (20:56)
[2017-10-27] MEDS ORDERED: MIDO10TA PO (20:56)
[2017-10-27] MEDS ORDERED: LEVO100T5 PO (20:56)
[2017-10-27] MEDS ORDERED: FLUOXETINE PO (20:56)
[2017-10-27] MEDS ORDERED: HYDR25TA11 PO (20:56)
[2017-10-27] MEDS ORDERED: ASPIRIN 325 MG TABLET ONE (21:59)
[2017-10-27] MEDS ORDERED: ASPIRIN 325 MG TABLET PO ONE (22:00)
[2017-10-27] MEDS ORDERED: POLYETHYLENE GLYCOL 17 GM PACKET PO PRN (22:30)
[2017-10-27] MEDS ORDERED: BISACODYL 10 MG SUPP PR PRN (22:30)
[2017-10-27] MEDS ORDERED: LABETALOL 5MG/ML, 20ML IV PRN (22:30)
[2017-10-27] MEDS ORDERED: ACETAMINOPHEN 325 MG TABLET PO PRN (22:30)
[2017-10-28] VITALS (7 sets, daily range): BP systolic 109–128; BP diastolic 71–84
[2017-10-28] MEDS: MIDODRINE 5 MG TABLET PO SCH ×4 (00:49→21:31)
[2017-10-28] MEDS: ATORVASTATIN 40 MG TABLET PO SCH ×2 (00:49→21:31)
[2017-10-28 05:25] LABS: ALBUMIN 2.8 g/dL (3.4-5.0); ANION GAP 9 mmol/L (5-15); CALCIUM 9.5 mg/dL (8.5-10.1); CHLORIDE 99 mmol/L (98-107)
[2017-10-28] MEDS: LEVOTHYROXINE 100 MCG TABLET PO SCH (05:25)
[2017-10-28 05:30] LABS: ALANINE AMINOTRANSFERASE 38 U/L (12-78); ALKALINE PHOSPHATASE 218 U/L (45-117); BILIRUBIN,TOTAL 0.4 mg/dL (0.2-1.0); CREATININE 3.37 mg/dL (0.55-1.02); TOTAL PROTEIN 9.1 g/dL (6.4-8.2)
[2017-10-28 05:33] LABS: BASOPHILS # (AUTO) 0.04 x10^3/uL (0-0.1); BASOPHILS % (AUTO) 1 % (0-1); EOSINOPHILS % (AUTO) 6 % (1-7); LYMPHOCYTES # (AUTO) 1.28 x10^3/uL (1-3.4); LYMPHOCYTES % (AUTO) 24 % (22-44); MD NO; MEAN CORPUSCULAR HEMOGLOBIN 29.5 pg (27.0-34.8); MEAN CORPUSCULAR HGB CONC 33.1 g/dL (32.4-35.8); MEAN PLATELET VOLUME 8.2 fL (7.4-10.4); MONOCYTES % (AUTO) 13 % (2-9); NEUTROPHILS # (AUTO) 2.95 x10^3/uL (1.8-6.8); NEUTROPHILS % (AUTO) 56 % (42-75); PLATELET COUNT 209 x10^3/uL (130-400); RED CELL DISTRIBUTION WIDTH 16.2 % (9.6-15.2)
[2017-10-28] MEDS: DARBEPOETIN 100 MCG/ML SQ SCH (08:00)
[2017-10-28] MEDS ORDERED: ASPIRIN 81 MG TABLET EC PO SCH (09:00)
[2017-10-28] MEDS ORDERED: ASPIRIN 325 MG TABLET ONE (10:11)
[2017-10-28] MEDS: CALCITRIOL 0.25 MCG CAPSULE PO SCH (10:20)
[2017-10-28] MEDS: AMANTADINE 100 MG CAPSULE PO SCH (10:20)
[2017-10-28] MEDS: CLOPIDOGREL 75 MG TABLET PO SCH (10:21)
[2017-10-28] MEDS: FLUOXETINE HCL 20 MG CAPSULE PO SCH (10:21)
[2017-10-28] MEDS: FERROUS SULFATE 325 MG TABLET PO SCH (10:21)
[2017-10-28] MEDS: ASPIRIN 325 MG TABLET PO SCH (10:25)
[2017-10-29 00:08] VITALS: BP 139/95
[2017-10-29] MEDS: LEVOTHYROXINE 100 MCG TABLET PO SCH (05:15)
[2017-10-29] MEDS: FERROUS SULFATE 325 MG TABLET PO SCH (09:00)
[2017-10-29] MEDS: CALCITRIOL 0.25 MCG CAPSULE PO SCH (09:00)
[2017-10-29] MEDS ORDERED: ASPIRIN 325 MG TABLET PO SCH (09:00)
[2017-10-29 09:26] VITALS: BP 136/70
[2017-10-29] MEDS: MIDODRINE 5 MG TABLET PO SCH ×3 (09:28→20:09)
[2017-10-29] MEDS: CLOPIDOGREL 75 MG TABLET PO SCH (09:28)
[2017-10-29] MEDS: ASPIRIN 325 MG TABLET PO SCH (09:28)
[2017-10-29] MEDS: AMANTADINE 100 MG CAPSULE PO SCH (09:29)
[2017-10-29] MEDS: FLUOXETINE HCL 20 MG CAPSULE PO SCH (09:29)
[2017-10-29 13:15] VITALS: BP 144/60
[2017-10-29 19:26] VITALS: BP 135/93
[2017-10-29 20:08] VITALS: BP 116/75
[2017-10-29] MEDS: ATORVASTATIN 40 MG TABLET PO SCH (20:09)
[2017-10-30 00:26] VITALS: BP 142/92
[2017-10-30 02:29] VITALS: BP 135/93
[2017-10-30] MEDS: LEVOTHYROXINE 100 MCG TABLET PO SCH (06:10)
[2017-10-30 08:22] VITALS: BP 134/84
[2017-10-30] MEDS: FERROUS SULFATE 325 MG TABLET PO SCH (09:00)
[2017-10-30] MEDS: CALCITRIOL 0.25 MCG CAPSULE PO SCH (09:00)
[2017-10-30] MEDS: ASPIRIN 325 MG TABLET PO SCH (10:33)
[2017-10-30] MEDS: MIDODRINE 5 MG TABLET PO SCH ×3 (10:34→20:44)
[2017-10-30] MEDS: CLOPIDOGREL 75 MG TABLET PO SCH (10:34)
[2017-10-30] MEDS: FLUOXETINE HCL 20 MG CAPSULE PO SCH (10:34)
[2017-10-30] MEDS: AMANTADINE 100 MG CAPSULE PO SCH (10:34)
[2017-10-30 12:11] VITALS: BP 155/84
[2017-10-30 19:30] VITALS: BP 102/67
[2017-10-30] MEDS: ATORVASTATIN 40 MG TABLET PO SCH (20:43)
[2017-10-31 01:50] VITALS: BP 113/70
[2017-10-31] MEDS: LEVOTHYROXINE 100 MCG TABLET PO SCH (05:35)
[2017-10-31 06:41] VITALS: BP 130/92
[2017-10-31] MEDS: FERROUS SULFATE 325 MG TABLET PO SCH (09:00)
[2017-10-31] MEDS: CALCITRIOL 0.25 MCG CAPSULE PO SCH (09:00)
[2017-10-31] MEDS: ASPIRIN 325 MG TABLET PO SCH (10:32)
[2017-10-31] MEDS: MIDODRINE 5 MG TABLET PO SCH ×3 (10:32→21:09)
[2017-10-31] MEDS: AMANTADINE 100 MG CAPSULE PO SCH (10:33)
[2017-10-31] MEDS: CLOPIDOGREL 75 MG TABLET PO SCH (10:33)
[2017-10-31] MEDS: FLUOXETINE HCL 20 MG CAPSULE PO SCH (10:33)
[2017-10-31 12:25] VITALS: BP 124/89
[2017-10-31] MEDS ORDERED: SODIUM CHLORIDE 0.9% 500 ML IV SCH (12:30)
[2017-10-31 20:00] VITALS: BP 125/83
[2017-10-31] MEDS: ATORVASTATIN 40 MG TABLET PO SCH (21:09)
[2017-10-31] MEDS: OXYcodone IR 5MG TABLET PO PRN (22:14)
[2017-11-01 02:18] VITALS: BP 158/98
[2017-11-01] MEDS: LEVOTHYROXINE 100 MCG TABLET PO SCH (04:46)
[2017-11-01] MEDS: CALCITRIOL 0.25 MCG CAPSULE PO SCH (07:41)
[2017-11-01] MEDS: FERROUS SULFATE 325 MG TABLET PO SCH (07:41)
[2017-11-01] MEDS: MIDODRINE 5 MG TABLET PO SCH ×5 (07:42→21:13)
[2017-11-01] MEDS: ASPIRIN 325 MG TABLET PO SCH (07:55)
[2017-11-01] MEDS: CLOPIDOGREL 75 MG TABLET PO SCH (07:55)
[2017-11-01 07:56] VITALS: BP 140/89
[2017-11-01] MEDS: AMANTADINE 100 MG CAPSULE PO SCH (07:56)
[2017-11-01] MEDS: OXYcodone IR 5MG TABLET PO PRN ×2 (07:56→13:46)
[2017-11-01 08:25] LABS: MEAN CORPUSCULAR HEMOGLOBIN 28.8 pg (27.0-34.8); MEAN CORPUSCULAR VOLUME 87.3 fL (80-100); MEAN PLATELET VOLUME 8.5 fL (7.4-10.4); PLATELET COUNT 258 x10^3/uL (130-400); RED BLOOD COUNT 4.38 x10^6/uL (3.82-5.3); RED CELL DISTRIBUTION WIDTH 16.1 % (9.6-15.2)
[2017-11-01 08:32] LABS: INTERNATIONAL NORMALIZED RATIO 1.11 (0.93-1.1); PROTHROMBIN TIME 11.5 Seconds (9.6-11.5)
[2017-11-01 08:35] LABS: ANION GAP 13 mmol/L (5-15); CALCIUM 9.7 mg/dL (8.5-10.1); CHLORIDE 101 mmol/L (98-107); CREATININE 5.22 mg/dL (0.55-1.02)
[2017-11-01 08:47] LABS: BASOPHILS # (AUTO) 0.02 x10^3/uL (0-0.1); BASOPHILS % (AUTO) 0 % (0-1); EOSINOPHILS # (AUTO) 0.02 x10^3/uL (0-0.4); EOSINOPHILS % (AUTO) 0 % (1-7); LYMPHOCYTES # (AUTO) 1.22 x10^3/uL (1-3.4); LYMPHOCYTES % (AUTO) 9 % (22-44); MD SCAN; MONOCYTES # (AUTO) 0.93 x10^3/uL (0.2-0.8); MONOCYTES % (AUTO) 7 % (2-9); NEUTROPHILS % (AUTO) 84 % (42-75)
[2017-11-01] MEDS: FLUOXETINE HCL 20 MG CAPSULE PO SCH (08:57)
[2017-11-01 10:40] LABS: C-REACTIVE PROTEIN, QUANT 8.5 mg/dL (0.02-0.49)
[2017-11-01 10:46] LABS: HCT (SEDRATE) 38.2 % (34.6-47.8)
[2017-11-01 12:02] LABS: MICROSCOPIC INDICATED
[2017-11-01 12:03] LABS: CULTURE INDICATED? YES
[2017-11-01 12:10] VITALS: BP 117/76
[2017-11-01 17:39] VITALS: BP 131/91
[2017-11-01] MEDS ORDERED: LORazepam 2 MG/ML, 1ML IVPush ONE (18:00)
[2017-11-01] MEDS: ATORVASTATIN 40 MG TABLET PO SCH ×2 (21:00→21:13)
[2017-11-01 21:12] VITALS: BP 104/80
[2017-11-02 00:20] VITALS: BP 136/96
[2017-11-02] MEDS: LEVOTHYROXINE 100 MCG TABLET PO SCH (06:03)
[2017-11-02 06:14] LABS: BASOPHILS # (AUTO) 0.02 x10^3/uL (0-0.1); BASOPHILS % (AUTO) 0 % (0-1); EOSINOPHILS # (AUTO) 0.02 x10^3/uL (0-0.4); EOSINOPHILS % (AUTO) 0 % (1-7); LYMPHOCYTES % (AUTO) 10 % (22-44); MD NO; MEAN CORPUSCULAR HEMOGLOBIN 29.4 pg (27.0-34.8); MEAN CORPUSCULAR HGB CONC 33.4 g/dL (32.4-35.8); MEAN CORPUSCULAR VOLUME 87.9 fL (80-100); MEAN PLATELET VOLUME 8.5 fL (7.4-10.4); MONOCYTES # (AUTO) 1.04 x10^3/uL (0.2-0.8); MONOCYTES % (AUTO) 9 % (2-9); NEUTROPHILS # (AUTO) 9.21 x10^3/uL (1.8-6.8); NEUTROPHILS % (AUTO) 80 % (42-75); PLATELET COUNT 248 x10^3/uL (130-400); RED BLOOD COUNT 4.61 x10^6/uL (3.82-5.3); RED CELL DISTRIBUTION WIDTH 16.2 % (9.6-15.2)
[2017-11-02 06:20] LABS: ALANINE AMINOTRANSFERASE 30 U/L (12-78); ALBUMIN 3.2 g/dL (3.4-5.0); ANION GAP 17 mmol/L (5-15); CALCIUM 10.2 mg/dL (8.5-10.1); CHLORIDE 98 mmol/L (98-107); CREATININE 5.63 mg/dL (0.55-1.02)
[2017-11-02 06:23] LABS: ALKALINE PHOSPHATASE 197 U/L (45-117); BILIRUBIN,TOTAL 0.6 mg/dL (0.2-1.0); TOTAL PROTEIN 10.4 g/dL (6.4-8.2)
[2017-11-02 08:00] VITALS: BP 108/66
[2017-11-02] MEDS: ASPIRIN 325 MG TABLET PO SCH (08:23)
[2017-11-02] MEDS: FERROUS SULFATE 325 MG TABLET PO SCH (08:23)
[2017-11-02] MEDS: FLUOXETINE HCL 20 MG CAPSULE PO SCH (08:23)
[2017-11-02] MEDS: MIDODRINE 5 MG TABLET PO SCH ×3 (08:23→21:01)
[2017-11-02] MEDS: AMANTADINE 100 MG CAPSULE PO SCH (08:23)
[2017-11-02] MEDS: CLOPIDOGREL 75 MG TABLET PO SCH (08:23)
[2017-11-02] MEDS: CALCITRIOL 0.25 MCG CAPSULE PO SCH (08:24)
[2017-11-02 14:00] VITALS: BP 83/64
[2017-11-02 20:00] VITALS: BP 129/65
[2017-11-02] MEDS: ATORVASTATIN 40 MG TABLET PO SCH (21:00)
[2017-11-03 00:31] VITALS: BP 107/76
[2017-11-03] MEDS: LEVOTHYROXINE 100 MCG TABLET PO SCH (04:59)
[2017-11-03 06:03] LABS: MEAN CORPUSCULAR HEMOGLOBIN 29.1 pg (27.0-34.8); MEAN CORPUSCULAR HGB CONC 32.9 g/dL (32.4-35.8); MEAN CORPUSCULAR VOLUME 88.5 fL (80-100); PLATELET COUNT 299 x10^3/uL (130-400); RED BLOOD COUNT 4.56 x10^6/uL (3.82-5.3); RED CELL DISTRIBUTION WIDTH 16.4 % (9.6-15.2)
[2017-11-03 06:13] LABS: ANION GAP 20 mmol/L (5-15); CALCIUM 10.5 mg/dL (8.5-10.1); CHLORIDE 98 mmol/L (98-107); CREATININE 7.68 mg/dL (0.55-1.02)
[2017-11-03 06:40] LABS: BASOPHILS % (AUTO) 0 % (0-1); EOSINOPHILS # (AUTO) 0.02 x10^3/uL (0-0.4); EOSINOPHILS % (AUTO) 0 % (1-7); LYMPHOCYTES # (AUTO) 1.42 x10^3/uL (1-3.4); LYMPHOCYTES % (AUTO) 13 % (22-44); MD SCAN; MONOCYTES # (AUTO) 1.54 x10^3/uL (0.2-0.8); MONOCYTES % (AUTO) 14 % (2-9); NEUTROPHILS # (AUTO) 8.06 x10^3/uL (1.8-6.8); NEUTROPHILS % (AUTO) 73 % (42-75)
[2017-11-03 08:20] VITALS: BP 127/90
[2017-11-03] MEDS: MIDODRINE 5 MG TABLET PO SCH ×3 (10:18→21:00)
[2017-11-03] MEDS: ASPIRIN 325 MG TABLET PO SCH (10:18)
[2017-11-03] MEDS: AMANTADINE 100 MG CAPSULE PO SCH (10:18)
[2017-11-03] MEDS: CLOPIDOGREL 75 MG TABLET PO SCH (10:18)
[2017-11-03] MEDS: FLUOXETINE HCL 20 MG CAPSULE PO SCH (10:18)
[2017-11-03] MEDS ORDERED: OMNIPAQUE 350 MG/ML, 100ML BOTTLE ONE (11:51)
[2017-11-03 12:30] VITALS: BP 117/82
[2017-11-03 19:41] VITALS: BP 117/81
[2017-11-03] MEDS: ATORVASTATIN 40 MG TABLET PO SCH (21:00)
[2017-11-03] MEDS: DARBEPOETIN 100 MCG/ML SQ SCH (22:05)
[2017-11-03 22:20] VITALS: BP 124/82
[2017-11-04 02:26] VITALS: BP 124/91
[2017-11-04 05:01] LABS: BASOPHILS # (AUTO) 0.09 x10^3/uL (0-0.1); BASOPHILS % (AUTO) 1 % (0-1); EOSINOPHILS # (AUTO) 0.06 x10^3/uL (0-0.4); EOSINOPHILS % (AUTO) 1 % (1-7); HCT (SEDRATE) 41.9 % (34.6-47.8); LYMPHOCYTES # (AUTO) 1.59 x10^3/uL (1-3.4); LYMPHOCYTES % (AUTO) 16 % (22-44); MD NO; MEAN CORPUSCULAR HEMOGLOBIN 29.3 pg (27.0-34.8); MEAN CORPUSCULAR HGB CONC 33.1 g/dL (32.4-35.8); MEAN CORPUSCULAR VOLUME 88.4 fL (80-100); MEAN PLATELET VOLUME 8.8 fL (7.4-10.4); MONOCYTES # (AUTO) 1.19 x10^3/uL (0.2-0.8); MONOCYTES % (AUTO) 12 % (2-9); NEUTROPHILS % (AUTO) 71 % (42-75); PLATELET COUNT 269 x10^3/uL (130-400); RED BLOOD COUNT 4.67 x10^6/uL (3.82-5.3); RED CELL DISTRIBUTION WIDTH 16.3 % (9.6-15.2)
[2017-11-04 05:13] LABS: CHLORIDE 94 mmol/L (98-107)
[2017-11-04 05:43] LABS: ANION GAP 15 mmol/L (5-15); CALCIUM 10.5 mg/dL (8.5-10.1); CREATININE 4.49 mg/dL (0.55-1.02)
[2017-11-04 05:44] LABS: ALANINE AMINOTRANSFERASE 28 U/L (12-78); ALBUMIN 3.2 g/dL (3.4-5.0); ALKALINE PHOSPHATASE 178 U/L (45-117); BILIRUBIN,TOTAL 0.7 mg/dL (0.2-1.0); TOTAL PROTEIN 10.7 g/dL (6.4-8.2)
[2017-11-04] MEDS: LEVOTHYROXINE 100 MCG TABLET PO SCH (06:24)
[2017-11-04 08:00] VITALS: BP 104/76
[2017-11-04] MEDS: ASPIRIN 325 MG TABLET PO SCH ×2 (09:00→10:51)
[2017-11-04] MEDS: AMANTADINE 100 MG CAPSULE PO SCH (10:51)
[2017-11-04] MEDS: MIDODRINE 5 MG TABLET PO SCH ×4 (10:51→23:42)
[2017-11-04] MEDS: CLOPIDOGREL 75 MG TABLET PO SCH (10:51)
[2017-11-04] MEDS: FLUOXETINE HCL 20 MG CAPSULE PO SCH (10:52)
[2017-11-04 13:50] VITALS: BP 157/42
[2017-11-04 19:27] VITALS: BP 132/88
[2017-11-04] MEDS: ATORVASTATIN 40 MG TABLET PO SCH ×2 (23:33→23:42)
[2017-11-05 02:33] VITALS: BP 144/93
[2017-11-05 05:08] LABS: BASOPHILS # (AUTO) 0.04 x10^3/uL (0-0.1); BASOPHILS % (AUTO) 1 % (0-1); EOSINOPHILS # (AUTO) 0.14 x10^3/uL (0-0.4); EOSINOPHILS % (AUTO) 2 % (1-7); LYMPHOCYTES # (AUTO) 1.23 x10^3/uL (1-3.4); LYMPHOCYTES % (AUTO) 18 % (22-44); MD NO; MEAN CORPUSCULAR HEMOGLOBIN 28.8 pg (27.0-34.8); MEAN CORPUSCULAR HGB CONC 32.4 g/dL (32.4-35.8); MEAN CORPUSCULAR VOLUME 88.9 fL (80-100); MEAN PLATELET VOLUME 8.7 fL (7.4-10.4); MONOCYTES # (AUTO) 0.99 x10^3/uL (0.2-0.8); MONOCYTES % (AUTO) 15 % (2-9); NEUTROPHILS # (AUTO) 4.45 x10^3/uL (1.8-6.8); NEUTROPHILS % (AUTO) 65 % (42-75); PLATELET COUNT 267 x10^3/uL (130-400); RED CELL DISTRIBUTION WIDTH 15.9 % (9.6-15.2)
[2017-11-05 05:15] LABS: CALCIUM 9.6 mg/dL (8.5-10.1); CHLORIDE 96 mmol/L (98-107)
[2017-11-05 05:22] LABS: ALANINE AMINOTRANSFERASE 26 U/L (12-78); ALBUMIN 2.8 g/dL (3.4-5.0); ALKALINE PHOSPHATASE 163 U/L (45-117); ANION GAP 13 mmol/L (5-15); BILIRUBIN,TOTAL 0.5 mg/dL (0.2-1.0); CREATININE 2.95 mg/dL (0.55-1.02); TOTAL PROTEIN 9.5 g/dL (6.4-8.2)
[2017-11-05] MEDS: LEVOTHYROXINE 100 MCG TABLET PO SCH (05:38)
[2017-11-05 08:30] VITALS: BP 128/75
[2017-11-05] MEDS: ASPIRIN 325 MG TABLET PO SCH (09:00)
[2017-11-05] MEDS ORDERED: ASPIRIN 81 MG TABLET CHEW ONE (11:13)
[2017-11-05] MEDS: CLOPIDOGREL 75 MG TABLET PO SCH (11:27)
[2017-11-05] MEDS: maalox/diphenh/lido/sucralfate 5 ML PO PRN ×2 (11:27→18:43)
[2017-11-05] MEDS: FLUOXETINE HCL 20 MG CAPSULE PO SCH (11:27)
[2017-11-05] MEDS: AMANTADINE 100 MG CAPSULE PO SCH (11:27)
[2017-11-05 14:51] VITALS: BP 105/69
[2017-11-05] MEDS: MIDODRINE 5 MG TABLET PO SCH ×2 (16:58→22:52)
[2017-11-05 19:45] VITALS: BP 125/82
[2017-11-06 00:10] VITALS: BP 120/77
[2017-11-06 00:48] LABS: OCCULT BLOOD POSITIVE (NEGATIVE)
[2017-11-06 03:52] LABS: ALBUMIN 2.8 g/dL (3.4-5.0); ANION GAP 13 mmol/L (5-15); CALCIUM 9.4 mg/dL (8.5-10.1); CHLORIDE 100 mmol/L (98-107)
[2017-11-06 03:55] LABS: ALANINE AMINOTRANSFERASE 24 U/L (12-78); ALKALINE PHOSPHATASE 157 U/L (45-117); BILIRUBIN,TOTAL 0.4 mg/dL (0.2-1.0); CREATININE 4.71 mg/dL (0.55-1.02); TOTAL PROTEIN 9.3 g/dL (6.4-8.2)
[2017-11-06 04:26] LABS: MD YES; MEAN CORPUSCULAR HEMOGLOBIN 29.1 pg (27.0-34.8); MEAN CORPUSCULAR HGB CONC 33.1 g/dL (32.4-35.8); MEAN CORPUSCULAR VOLUME 87.8 fL (80-100); MEAN PLATELET VOLUME 8.6 fL (7.4-10.4); PLATELET COUNT 299 x10^3/uL (130-400); RED BLOOD COUNT 4.13 x10^6/uL (3.82-5.3)
[2017-11-06 04:30] LABS: <PLATELET ESTIMATE> ADEQUATE; ANISOCYTOSIS 1+; BASOS#(MANUAL) 0.07 x10^3/uL (0-0.1); BASOS% (MANUAL) 1 % (0-1); EOS% (MANUAL) 4 % (1-7); LYMPH#(MANUAL) 2.37 x10^3/uL (1-3.4); LYMPHS% (MANUAL) 32 % (22-44); MONOS#(MANUAL) 0.81 x10^3/uL (0.3-2.7); MONOS% (MANUAL) 11 % (2-9); SEG#(MANUAL) 3.85 x10^3/uL (1.8-6.8); SEGS% (MANUAL) 52 % (42-75)
[2017-11-06 04:44] LABS: <PLT MORPHOLOGY> NORMAL PLT MORPH
[2017-11-06] MEDS: LEVOTHYROXINE 100 MCG TABLET PO SCH (05:25)
[2017-11-06 07:33] VITALS: BP 96/67
[2017-11-06] MEDS ORDERED: ASPIRIN 81 MG TABLET CHEW ONE (08:36)
[2017-11-06] MEDS: ASPIRIN 325 MG TABLET PO SCH (08:41)
[2017-11-06] MEDS: MIDODRINE 5 MG TABLET PO SCH ×3 (08:42→22:27)
[2017-11-06] MEDS: FLUOXETINE HCL 20 MG CAPSULE PO SCH (08:43)
[2017-11-06] MEDS: AMANTADINE 100 MG CAPSULE PO SCH (08:43)
[2017-11-06] MEDS: ONDANSETRON 4 MG TABLET PO PRN (12:03)
[2017-11-06 14:53] VITALS: BP 107/72
[2017-11-06 20:19] VITALS: BP 108/65
[2017-11-06] MEDS: ATORVASTATIN 40 MG TABLET PO SCH (22:26)
[2017-11-06] MEDS: maalox/diphenh/lido/sucralfate 5 ML PO PRN (22:27)
[2017-11-07 01:09] VITALS: BP 110/79
[2017-11-07] MEDS: LEVOTHYROXINE 100 MCG TABLET PO SCH (05:16)
[2017-11-07 05:32] LABS: ALBUMIN 2.8 g/dL (3.4-5.0); ANION GAP 17 mmol/L (5-15); CALCIUM 9.7 mg/dL (8.5-10.1); CHLORIDE 100 mmol/L (98-107)
[2017-11-07 05:36] LABS: ALANINE AMINOTRANSFERASE 33 U/L (12-78); ALKALINE PHOSPHATASE 138 U/L (45-117); BILIRUBIN,TOTAL 0.5 mg/dL (0.2-1.0); CREATININE 3.76 mg/dL (0.55-1.02); TOTAL PROTEIN 8.5 g/dL (6.4-8.2)
[2017-11-07 05:37] LABS: BASOPHILS # (AUTO) 0.02 x10^3/uL (0-0.1); BASOPHILS % (AUTO) 0 % (0-1); EOSINOPHILS # (AUTO) 0.01 x10^3/uL (0-0.4); EOSINOPHILS % (AUTO) 0 % (1-7); LYMPHOCYTES # (AUTO) 1.44 x10^3/uL (1-3.4); LYMPHOCYTES % (AUTO) 20 % (22-44); MD NO; MEAN CORPUSCULAR HEMOGLOBIN 29.1 pg (27.0-34.8); MEAN CORPUSCULAR HGB CONC 32.8 g/dL (32.4-35.8); MEAN CORPUSCULAR VOLUME 88.8 fL (80-100); MEAN PLATELET VOLUME 8.8 fL (7.4-10.4); MONOCYTES # (AUTO) 1.09 x10^3/uL (0.2-0.8); MONOCYTES % (AUTO) 15 % (2-9); NEUTROPHILS % (AUTO) 65 % (42-75); PLATELET COUNT 298 x10^3/uL (130-400); RED BLOOD COUNT 3.68 x10^6/uL (3.82-5.3); RED CELL DISTRIBUTION WIDTH 16.5 % (9.6-15.2)
[2017-11-07 08:08] VITALS: BP 88/60
[2017-11-07] MEDS: ASPIRIN 325 MG TABLET PO SCH (08:18)
[2017-11-07] MEDS: MIDODRINE 5 MG TABLET PO SCH ×3 (08:18→21:44)
[2017-11-07] MEDS: FLUOXETINE HCL 20 MG CAPSULE PO SCH (08:18)
[2017-11-07] MEDS: AMANTADINE 100 MG CAPSULE PO SCH (08:18)
[2017-11-07 10:00] VITALS: BP 102/65
[2017-11-07] MEDS: maalox/diphenh/lido/sucralfate 5 ML PO PRN (12:00)
[2017-11-07] MEDS: MOVIPREP POWDER 1 PREP KIT PO SCH (17:46)
[2017-11-07 18:57] VITALS: BP 112/69
[2017-11-07] MEDS: ATORVASTATIN 40 MG TABLET PO SCH (21:43)
[2017-11-08 00:45] VITALS: BP 108/64
[2017-11-08] MEDS: MOVIPREP POWDER 1 PREP KIT PO SCH (01:53)
[2017-11-08 06:26] LABS: MEAN CORPUSCULAR HEMOGLOBIN 29.3 pg (27.0-34.8); MEAN CORPUSCULAR HGB CONC 32.8 g/dL (32.4-35.8); MEAN CORPUSCULAR VOLUME 89.4 fL (80-100); MEAN PLATELET VOLUME 8.6 fL (7.4-10.4); PLATELET COUNT 321 x10^3/uL (130-400); RED BLOOD COUNT 4.01 x10^6/uL (3.82-5.3); RED CELL DISTRIBUTION WIDTH 16.5 % (9.6-15.2)
[2017-11-08 06:39] LABS: ANION GAP 25 mmol/L (5-15); CALCIUM 10.8 mg/dL (8.5-10.1); CHLORIDE 104 mmol/L (98-107)
[2017-11-08 06:52] LABS: BASOPHILS % (AUTO) 0 % (0-1); EOSINOPHILS % (AUTO) 0 % (1-7); LYMPHOCYTES # (AUTO) 1.24 x10^3/uL (1-3.4); LYMPHOCYTES % (AUTO) 10 % (22-44); MD SCAN; MONOCYTES # (AUTO) 1.74 x10^3/uL (0.2-0.8); MONOCYTES % (AUTO) 14 % (2-9); NEUTROPHILS # (AUTO) 9.14 x10^3/uL (1.8-6.8); NEUTROPHILS % (AUTO) 75 % (42-75)
[2017-11-08] MEDS: ASPIRIN 325 MG TABLET PO SCH (07:41)
[2017-11-08] MEDS: LEVOTHYROXINE 100 MCG TABLET PO SCH (07:41)
[2017-11-08] MEDS: AMANTADINE 100 MG CAPSULE PO SCH (07:41)
[2017-11-08] MEDS: FLUOXETINE HCL 20 MG CAPSULE PO SCH (07:41)
[2017-11-08] MEDS: MIDODRINE 5 MG TABLET PO SCH ×3 (07:41→20:12)
[2017-11-08 08:30] VITALS: BP 142/68
[2017-11-08] MEDS ORDERED: DEXTROSE 50%, 50ML SYRINGE ONE ×4 (11:27→11:54)
[2017-11-08] MEDS ORDERED: DEXTROSE 5% 500 ML IV SCH (12:30)
[2017-11-08] MEDS ORDERED: ALBUMIN HUMAN 25% 50 ML IV PRN (13:00)
[2017-11-08 14:41] VITALS: BP 129/86
[2017-11-08 20:04] VITALS: BP 126/85
[2017-11-08] MEDS: ATORVASTATIN 40 MG TABLET PO SCH (20:12)
[2017-11-08] MEDS ORDERED: DEXTROSE 5% 1,000 ML IV SCH (20:30)
[2017-11-08] MEDS ORDERED: DEXTROSE 50%, 50ML SYRINGE IVPush PRN (22:30)
[2017-11-08] MEDS ORDERED: GLUCAGON 1 MG IM PRN (22:30)
[2017-11-08] MEDS ORDERED: DEXTROSE 50%, 50ML SYRINGE IVPush ONE (22:30)
[2017-11-08] MEDS ORDERED: DEXTROSE 4 GM TAB.CHEW PO PRN (22:30)
[2017-11-09] MEDS ORDERED: DEXTROSE 50%, 50ML SYRINGE IVPush ONE
[2017-11-09] MEDS: DEXTROSE 10% 1,000 ML IV SCH ×3 (00:11→23:05)
[2017-11-09 00:29] VITALS: BP 104/70
[2017-11-09] MEDS: DEXTROSE 50%, 50ML SYRINGE IVPush PRN (01:46)
[2017-11-09] MEDS: LEVOTHYROXINE 100 MCG TABLET PO SCH (04:45)
[2017-11-09 06:04] LABS: CHLORIDE 99 mmol/L (98-107)
[2017-11-09 06:12] LABS: ALANINE AMINOTRANSFERASE 286 U/L (12-78); ALBUMIN 2.9 g/dL (3.4-5.0); ALKALINE PHOSPHATASE 157 U/L (45-117); ANION GAP 16 mmol/L (5-15); BILIRUBIN,TOTAL 0.6 mg/dL (0.2-1.0); CALCIUM 9.6 mg/dL (8.5-10.1); CREATININE 3.56 mg/dL (0.55-1.02); TOTAL PROTEIN 8.2 g/dL (6.4-8.2)
[2017-11-09 06:18] LABS: BASOPHILS # (AUTO) 0.01 x10^3/uL (0-0.1); BASOPHILS % (AUTO) 0 % (0-1); EOSINOPHILS # (AUTO) 0.01 x10^3/uL (0-0.4); EOSINOPHILS % (AUTO) 0 % (1-7); LYMPHOCYTES # (AUTO) 1.67 x10^3/uL (1-3.4); LYMPHOCYTES % (AUTO) 12 % (22-44); MD NO; MEAN CORPUSCULAR HEMOGLOBIN 29.3 pg (27.0-34.8); MEAN CORPUSCULAR HGB CONC 32.8 g/dL (32.4-35.8); MEAN CORPUSCULAR VOLUME 89.3 fL (80-100); MEAN PLATELET VOLUME 8.4 fL (7.4-10.4); MONOCYTES # (AUTO) 0.98 x10^3/uL (0.2-0.8); MONOCYTES % (AUTO) 7 % (2-9); NEUTROPHILS % (AUTO) 81 % (42-75); PLATELET COUNT 244 x10^3/uL (130-400); RED CELL DISTRIBUTION WIDTH 16.5 % (9.6-15.2)
[2017-11-09] MEDS: maalox/diphenh/lido/sucralfate 5 ML PO PRN (06:20)
[2017-11-09 07:20] VITALS: BP 110/76
[2017-11-09] MEDS: MIDODRINE 5 MG TABLET PO SCH ×3 (09:00→21:08)
[2017-11-09] MEDS: SODIUM CHLORIDE FLUSH 10ML SYR IVF SCH ×2 (09:00→21:09)
[2017-11-09] MEDS: AMANTADINE 100 MG CAPSULE PO SCH (09:00)
[2017-11-09] MEDS ORDERED: DARBEPOETIN 100 MCG/ML SQ SCH (10:26)
[2017-11-09] MEDS ORDERED: POTASSIUM CHLORIDE 40 MEQ in SODIUM CHLORIDE 0.9% 500 ML IV ONE (10:30)
[2017-11-09] MEDS ORDERED: DEXTROSE 50%, 50ML SYRINGE ONE (13:56)
[2017-11-09] MEDS ORDERED: ONDANSETRON ODT 8 MG PO PRN (14:00)
[2017-11-09] MEDS ORDERED: FENTANYL PF 100 MCG/2ML IV PRN (14:00)
[2017-11-09] MEDS ORDERED: DEXTROSE 50%, 50ML SYRINGE IVPush STA (14:08)
[2017-11-09 15:19] VITALS: BP 112/81
[2017-11-09] MEDS: ASPIRIN 325 MG TABLET PO SCH (15:23)
[2017-11-09] MEDS: FLUOXETINE HCL 20 MG CAPSULE PO SCH (15:24)
[2017-11-09] MEDS ORDERED: PROPOFOL 10 MG/ML, 20ML ONE (15:31)
[2017-11-09] MEDS ORDERED: PROPOFOL 10 MG/ML, 50ML ONE (15:31)
[2017-11-09 20:28] VITALS: BP 119/76
[2017-11-09] MEDS: MIRTAZAPINE 15 MG TABLET PO SCH (21:08)
[2017-11-09] MEDS: ATORVASTATIN 40 MG TABLET PO SCH (21:08)
[2017-11-10] MEDS: DEXTROSE 50%, 50ML SYRINGE IVPush PRN (01:30)
[2017-11-10 02:20] VITALS: BP 132/86
[2017-11-10] MEDS: LEVOTHYROXINE 100 MCG TABLET PO SCH ×2 (05:03→05:09)
[2017-11-10 07:40] VITALS: BP 125/83
[2017-11-10] MEDS: AMANTADINE 100 MG CAPSULE PO SCH (07:59)
[2017-11-10] MEDS: FLUOXETINE HCL 20 MG CAPSULE PO SCH (07:59)
[2017-11-10] MEDS: SODIUM CHLORIDE FLUSH 10ML SYR IVF SCH ×2 (08:00→22:08)
[2017-11-10] MEDS: ASPIRIN 325 MG TABLET PO SCH ×2 (08:00→08:04)
[2017-11-10] MEDS: MIDODRINE 5 MG TABLET PO SCH ×3 (08:00→22:08)
[2017-11-10] MEDS: DEXTROSE 10% 1,000 ML IV SCH (08:01)
[2017-11-10] MEDS: maalox/diphenh/lido/sucralfate 5 ML PO PRN (08:33)
[2017-11-10 10:41] LABS: ANION GAP 16 mmol/L (5-15); CALCIUM 8.9 mg/dL (8.5-10.1); CHLORIDE 96 mmol/L (98-107); CREATININE 4.46 mg/dL (0.55-1.02)
[2017-11-10 11:09] LABS: MEAN CORPUSCULAR HEMOGLOBIN 28.9 pg (27.0-34.8); MEAN CORPUSCULAR HGB CONC 32.5 g/dL (32.4-35.8); MEAN CORPUSCULAR VOLUME 88.9 fL (80-100); MEAN PLATELET VOLUME 8.5 fL (7.4-10.4); PLATELET COUNT 228 x10^3/uL (130-400); RED BLOOD COUNT 3.48 x10^6/uL (3.82-5.3); RED CELL DISTRIBUTION WIDTH 17.2 % (9.6-15.2)
[2017-11-10 11:18] LABS: BASOPHILS # (AUTO) 0.14 x10^3/uL (0-0.1); BASOPHILS % (AUTO) 1 % (0-1); EOSINOPHILS # (AUTO) 0.18 x10^3/uL (0-0.4); EOSINOPHILS % (AUTO) 2 % (1-7); LYMPHOCYTES # (AUTO) 1.85 x10^3/uL (1-3.4); LYMPHOCYTES % (AUTO) 16 % (22-44); MD SCAN; MONOCYTES # (AUTO) 1.09 x10^3/uL (0.2-0.8); MONOCYTES % (AUTO) 9 % (2-9); NEUTROPHILS # (AUTO) 8.51 x10^3/uL (1.8-6.8); NEUTROPHILS % (AUTO) 72 % (42-75)
[2017-11-10] MEDS ORDERED: POTASSIUM CHLORIDE 10% 40 MEQ/30 ML UDC PO ONE (13:00)
[2017-11-10 13:29] VITALS: BP 138/88
[2017-11-10 14:06] LABS: HEMOGLOBIN A1C 4.2 % (4.2-6.3)
[2017-11-10] MEDS ORDERED: ASPIRIN 325 MG TABLET PO SCH (17:56)
[2017-11-10 19:48] VITALS: BP 92/64
[2017-11-10] MEDS: ATORVASTATIN 40 MG TABLET PO SCH (22:08)
[2017-11-10] MEDS: MIRTAZAPINE 15 MG TABLET PO SCH (22:08)
[2017-11-11 02:13] VITALS: BP 90/72
[2017-11-11 04:24] LABS: MICROSCOPIC INDICATED
[2017-11-11 04:25] LABS: CULTURE INDICATED? YES
[2017-11-11] MEDS ORDERED: SODIUM CHLORIDE 0.9% 100 ML IV SCH (04:30)
[2017-11-11] MEDS ORDERED: SODIUM CHLORIDE 0.9% 1,000 ML IV SCH (05:00)
[2017-11-11] MEDS: LEVOTHYROXINE 100 MCG TABLET PO SCH (05:30)
[2017-11-11] MEDS: OMEPRAZOLE 20 MG CAPSULE.DR PO SCH ×2 (07:30→16:51)
[2017-11-11] MEDS: MIDODRINE 5 MG TABLET PO SCH ×3 (08:55→21:35)
[2017-11-11] MEDS: FLUOXETINE HCL 20 MG CAPSULE PO SCH (08:56)
[2017-11-11] MEDS: SODIUM CHLORIDE FLUSH 10ML SYR IVF SCH ×2 (08:57→21:00)
[2017-11-11 09:11] LABS: ANION GAP 9 mmol/L (5-15); CALCIUM 8.7 mg/dL (8.5-10.1); CHLORIDE 102 mmol/L (98-107); CREATININE 2.76 mg/dL (0.55-1.02)
[2017-11-11 09:16] LABS: MEAN CORPUSCULAR HEMOGLOBIN 28.7 pg (27.0-34.8); MEAN CORPUSCULAR HGB CONC 32.2 g/dL (32.4-35.8); MEAN CORPUSCULAR VOLUME 89.2 fL (80-100); MEAN PLATELET VOLUME 7.7 fL (7.4-10.4); PLATELET COUNT 215 x10^3/uL (130-400); RED BLOOD COUNT 3.54 x10^6/uL (3.82-5.3); RED CELL DISTRIBUTION WIDTH 16.9 % (9.6-15.2)
[2017-11-11 09:17] LABS: BASOPHILS # (AUTO) 0.02 x10^3/uL (0-0.1); BASOPHILS % (AUTO) 0 % (0-1); EOSINOPHILS # (AUTO) 0.03 x10^3/uL (0-0.4); EOSINOPHILS % (AUTO) 0 % (1-7); LYMPHOCYTES # (AUTO) 1.03 x10^3/uL (1-3.4); LYMPHOCYTES % (AUTO) 15 % (22-44); MD SCAN; MONOCYTES # (AUTO) 0.58 x10^3/uL (0.2-0.8); MONOCYTES % (AUTO) 8 % (2-9); NEUTROPHILS # (AUTO) 5.33 x10^3/uL (1.8-6.8); NEUTROPHILS % (AUTO) 76 % (42-75)
[2017-11-11 09:43] VITALS: BP 95/60
[2017-11-11] MEDS ORDERED: SODIUM CHLORIDE 0.9% 1,000 ML IV ONE (15:00)
[2017-11-11 15:31] VITALS: BP 119/82
[2017-11-11 20:42] VITALS: BP 138/94
[2017-11-11] MEDS: ATORVASTATIN 40 MG TABLET PO SCH (21:34)
[2017-11-11] MEDS: MIRTAZAPINE 15 MG TABLET PO SCH (21:35)
[2017-11-12 01:18] VITALS: BP 126/84
[2017-11-12] MEDS ORDERED: SODIUM CHLORIDE 0.9% 1,000 ML IV SCH (04:30)
[2017-11-12] MEDS: DEXTROSE 50%, 50ML SYRINGE IVPush PRN ×4 (05:31→20:45)
[2017-11-12] MEDS: LEVOTHYROXINE 100 MCG TABLET PO SCH (05:36)
[2017-11-12 07:19] VITALS: BP 100/68
[2017-11-12 07:31] LABS: ANION GAP 8 mmol/L (5-15); CALCIUM 8.5 mg/dL (8.5-10.1); CHLORIDE 104 mmol/L (98-107); CREATININE 3.66 mg/dL (0.55-1.02)
[2017-11-12] MEDS: OMEPRAZOLE 20 MG CAPSULE.DR PO SCH ×2 (08:37→16:27)
[2017-11-12] MEDS: MIDODRINE 5 MG TABLET PO SCH ×3 (08:37→20:45)
[2017-11-12] MEDS: FLUOXETINE HCL 20 MG CAPSULE PO SCH (08:37)
[2017-11-12] MEDS: SODIUM CHLORIDE FLUSH 10ML SYR IVF SCH ×2 (08:38→20:53)
[2017-11-12 08:45] LABS: MEAN CORPUSCULAR HEMOGLOBIN 29.2 pg (27.0-34.8); MEAN CORPUSCULAR HGB CONC 32.6 g/dL (32.4-35.8); MEAN CORPUSCULAR VOLUME 89.7 fL (80-100); MEAN PLATELET VOLUME 8.6 fL (7.4-10.4); PLATELET COUNT 189 x10^3/uL (130-400); RED BLOOD COUNT 3.38 x10^6/uL (3.82-5.3)
[2017-11-12 08:46] LABS: MD YES; RED CELL DISTRIBUTION WIDTH 17.4 % (9.6-15.2)
[2017-11-12 08:48] LABS: <PLATELET ESTIMATE> ADEQUATE; <PLT MORPHOLOGY> NORMAL PLT MORPH; ANISOCYTOSIS 1+; BAND#(MANUAL) 0.18 x10^3/uL; BANDS%(MANUAL) 2 % (0-7); EOS#(MANUAL) 0.09 x10^3/uL (0.0-0.4); EOS% (MANUAL) 1 % (1-7); HYPOCHROMIA 1+; LYMPH#(MANUAL) 1.23 x10^3/uL (1-3.4); LYMPHS% (MANUAL) 14 % (22-44); MONOS#(MANUAL) 0.53 x10^3/uL (0.3-2.7); MONOS% (MANUAL) 6 % (2-9); NRBC % (MANUAL) 1 % (0-1); POLYCHROMASIA 1+; SEG#(MANUAL) 6.78 x10^3/uL (1.8-6.8); SEGS% (MANUAL) 77 % (42-75); TARGET CELLS 1+
[2017-11-12 11:27] LABS: ALBUMIN 2.1 g/dL (3.4-5.0); BILIRUBIN, DIRECT 0.2 mg/dL (0.1-0.2)
[2017-11-12 11:29] LABS: BILIRUBIN,TOTAL 0.4 mg/dL (0.2-1.0); TOTAL PROTEIN 6.9 g/dL (6.4-8.2)
[2017-11-12] MEDS ORDERED: DEXTROSE 5% 1,000 ML IV SCH (11:30)
[2017-11-12] MEDS: OCTREOTIDE 50 MCG/ML, 1ML (0.05MG/ML) IM SCH ×2 (12:07→20:53)
[2017-11-12 12:09] LABS: BILIRUBIN,INDIRECT 0.2 mg/dL (0.0-2.0)
[2017-11-12 12:53] VITALS: BP 116/80
[2017-11-12] MEDS: ONDANSETRON 4 MG TABLET PO PRN (13:43)
[2017-11-12 20:30] VITALS: BP 111/75
[2017-11-12] MEDS: ATORVASTATIN 40 MG TABLET PO SCH (20:45)
[2017-11-12] MEDS: MIRTAZAPINE 15 MG TABLET PO SCH (20:46)
[2017-11-12] MEDS ORDERED: DEXTROSE 10%, 1,000ML IV ONE (21:00)
[2017-11-13 00:32] VITALS: BP 136/75
[2017-11-13] MEDS: LEVOTHYROXINE 100 MCG TABLET PO SCH (05:42)
[2017-11-13 06:32] VITALS: BP 85/55
[2017-11-13] MEDS: OMEPRAZOLE 20 MG CAPSULE.DR PO SCH (08:36)
[2017-11-13] MEDS: FLUOXETINE HCL 20 MG CAPSULE PO SCH (08:37)
[2017-11-13] MEDS: MIDODRINE 5 MG TABLET PO SCH (08:37)
[2017-11-13] MEDS: SODIUM CHLORIDE FLUSH 10ML SYR IVF SCH (08:38)
[2017-11-13] MEDS: OCTREOTIDE 50 MCG/ML, 1ML (0.05MG/ML) IM SCH (09:47)
[2017-11-13 12:59] VITALS: BP 116/77
== END 2017-11-13 16:11 | disposition hospice, home (50) | DRG 70 ==
LOC: ED 20:23 → EDIP 21:53 → 4EST 23:32
PROVIDERS: ADMIT Hospitalist; ATTEND Hospitalist
PROC: 5A1D70Z Performance of Urinary Filtration, Intermittent, Less than 6 Hours Per Day (ICD-10-PCS; principal; 2017-11-01)
PROC: 5A1D70Z Performance of Urinary Filtration, Intermittent, Less than 6 Hours Per Day (ICD-10-PCS; 2017-11-03)
PROC: 5A1D70Z Performance of Urinary Filtration, Intermittent, Less than 6 Hours Per Day (ICD-10-PCS; 2017-11-04)
PROC: 5A1D70Z Performance of Urinary Filtration, Intermittent, Less than 6 Hours Per Day (ICD-10-PCS; 2017-11-06)
PROC: 5A1D70Z Performance of Urinary Filtration, Intermittent, Less than 6 Hours Per Day (ICD-10-PCS; 2017-11-08)
PROC: 0DB68ZX Excision of Stomach, Via Natural or Artificial Opening Endoscopic, Diagnostic (ICD-10-PCS; 2017-11-09)
PROC: 0DBN8ZX Excision of Sigmoid Colon, Via Natural or Artificial Opening Endoscopic, Diagnostic (ICD-10-PCS; 2017-11-09)
PROC: 0DBL8ZX Excision of Transverse Colon, Via Natural or Artificial Opening Endoscopic, Diagnostic (ICD-10-PCS; 2017-11-09)
PROC: 5A1D70Z Performance of Urinary Filtration, Intermittent, Less than 6 Hours Per Day (ICD-10-PCS; 2017-11-10)
PROC: 5A1D70Z Performance of Urinary Filtration, Intermittent, Less than 6 Hours Per Day (ICD-10-PCS; 2017-11-13)
DX: G93.41 Metabolic encephalopathy (principal); N18.6 End stage renal disease; G45.9 Transient cerebral ischemic attack, unspecified; D62 Acute posthemorrhagic anemia; E46 Unspecified protein-calorie malnutrition; E87.1 Hypo-osmolality and hyponatremia; G91.9 Hydrocephalus, unspecified; I13.2 Hypertensive heart and chronic kidney disease with heart failure and with stage 5 chronic kidney disease, or end stage renal disease; I69.354 Hemiplegia and hemiparesis following cerebral infarction affecting left non-dominant side; K55.9 Vascular disorder of intestine, unspecified; Z99.11 Dependence on respirator [ventilator] status; K62.5 Hemorrhage of anus and rectum; B18.2 Chronic viral hepatitis C; D63.1 Anemia in chronic kidney disease; E03.9 Hypothyroidism, unspecified; E16.2 Hypoglycemia, unspecified; E78.5 Hyperlipidemia, unspecified; E83.52 Hypercalcemia; E87.5 Hyperkalemia; F03.90 Unspecified dementia, unspecified severity, without behavioral disturbance, psychotic disturbance, mood disturbance, and anxiety; F17.210 Nicotine dependence, cigarettes, uncomplicated; G20 Parkinson's disease; I25.10 Atherosclerotic heart disease of native coronary artery without angina pectoris; I50.9 Heart failure, unspecified; I69.391 Dysphagia following cerebral infarction; K26.9 Duodenal ulcer, unspecified as acute or chronic, without hemorrhage or perforation; M10.9 Gout, unspecified; R19.00 Intra-abdominal and pelvic swelling, mass and lump, unspecified site; Z66 Do not resuscitate; N25.0 Renal osteodystrophy; Z51.5 Encounter for palliative care; Z80.0 Family history of malignant neoplasm of digestive organs; Z82.49 Family history of ischemic heart disease and other diseases of the circulatory system; Z86.14 Personal history of Methicillin resistant Staphylococcus aureus infection; Z99.2 Dependence on renal dialysis; Z99.3 Dependence on wheelchair; Z88.0 Allergy status to penicillin; Z88.8 Allergy status to other drugs, medicaments and biological substances; Z87.01 Personal history of pneumonia (recurrent); Z87.440 Personal history of urinary (tract) infections; Z79.82 Long term (current) use of aspirin; Z79.02 Long term (current) use of antithrombotics/antiplatelets; I95.89 Other hypotension
CPT/HCPCS: 36415; 70450; 70496; 70498; 70551; 71045; 74018; 74177; 80047; 80048; 80053; 80074; 80076; 81001; 82140; 82272; 82533; 82607; 82947; 82962; 83036; 83525; 83735; 84206; 84443; 84681; 85014; 85018; 85025; 85610; 85651; 85730; 86140; 86850; 86900; 87040; 87077; 87086; 87186; 87521; 88305; 93005; 93880; 93922; 93970; 95819; 99285; G0378; J0881; J2354; J2704; J3480; J7070; Q0162; Q9967; 92523-GN; J2060; J7030; J7040; J7060